=== PATIENT | male | born 1955 | race Caucasian/White ===

== ENCOUNTER 2024-06-28 15:08 | Inpatient (IN) | payer MEDICARE, SELFPAY ==
[2024-06-28] VITALS (37 sets, daily range): BP systolic 81–130; BP diastolic 41–95; PULSE 16–125; RESP 12–28; TEMP 36.4–36.7; O2SAT 90–100; BMI 27.6; BMI 27.0
--- NOTE | 2024-06-28 15:08 | ECG_ITS ---
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 Measurements Intervals [place] Rate: 122 P: 53 VA: 173 QRS: 81 QRSD: 151 T: -53 QT: 365 QTc: 520 Interpretive Statements SINUS TACHYCARDIA WITH OCCASIONAL VENTRICULAR PREMATURE COMPLEXES RIGHT BUNDLE BRANCH BLOCK ST CHANGES, CONSIDER INFERIOR ISCHEMIA . No previous ECG available for comparison Electronically Signed On 06-28-2024 16:39:49 CDT by Austen Hector M.D. [email or web address]
--- NOTE | 2024-06-28 15:09 | XRR_ITS ---
PROCEDURE INFORMATION: Exam: XR Chest Exam date and time: 06/28/2024 3:22 PM Age: 69 years old Clinical indication: Orthopnea (sob when lying down) TECHNIQUE: Imaging protocol: Radiologic exam of the chest. Views: 1 view. COMPARISON: No relevant prior studies available. FINDINGS: Lungs: There are patchy bilateral infiltrates suspicious for multifocal pneumonia. Pleural spaces: There is minimal blunting of the costophrenic angles which could be related to small amount of pleural fluid or pleural thickening. Heart/Mediastinum: The heart is enlarged. There is calcified plaque involving the aorta. Bones/joints: Unremarkable. XR/XR chest 1V portable [id number] IMPRESSION: 1. Cardiomegaly. 2. Patchy bilateral infiltrates suspicious for multifocal pneumonia. 3. Minimal blunting of the costophrenic angles.
[2024-06-28 15:20] LABS: ABG PCO2 34.2 mmHg (35-45); ABG PH Result 7.45 (7.35-7.45); Alveolar-Arterial Oxygen Gradi 4.7 mmHg (5-10); Arterial Blood Gas Hematocrit 20.8 % (42-52); Base Excess ABG -0.2 mmol/L (-2.0-2.0); Blood Gas Allen Test Pos; Blood Gas Operator Identificat WALCI; Blood Gas Sample Site Radial, right; Blood Gas Sample Type Arterial; Carboxyhemoglobin 3.2 %THgb (0.4-20.1); HCO3 ABG 23.7 mmol/L (22-26); HGB O2 Sat 91.1 % (95-100); Ionized Calcium Level - ABG 1.1 mmol/L (1.1-1.4); Methemoglobin 1.5 % (0.4-1.5); Oxygen Device ROOM AIR; Oxygen Saturation ABG 95.6; PO2 ABG 70.2 mmHg (80.0-100.0); PO2 FiO2 Ratio Arterial Blood 334; Potassium Level - ABG 4.5 mmol/L (3.5-5.0); Total Hemoglobin 6.8 g/dL (14-18)
--- NOTE | 2024-06-28 15:20 | ED_ITS ---
HPI - SOB/Dyspnea 2 General: Chief Complaint: Shortness of Breath/Dyspnea Stated Complaint: sob Time Seen by Provider: 06/28/24 15:18 History of Present Illness: HPI Narrative: 69-year-old male presents emergency room with complaint of shortness of breath. Patient states a trouble with continence of bowel and bladder now developed shortness of breath today oxygen saturations are normal. He has a caregiver that is with him describes her [place] roommate she has no legal standing they are not she does not have power of corporate attorney she reports the patient has been hallucinating. 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 Patient himself denies chest pain some mild abdominal discomfort is very hard of hearing continually complains of chest discomfort he is tachycardic on arrival. Associated symptoms: Reports chest congestion and fever(s); Deny abdominal pain or chest pain Related Data Home Medications Medication Instructions Recorded Confirmed No Known Home Medications 08/11/23 08/11/23 Allergies Allergy/AdvReac Type Severity Reaction Status Date / Time No Known Allergies Allergy Unverified 08/11/23 14:59 Review of Systems 2 Const: Reports: fever(s) and fatigue; Denies: chills Card: Denies: chest pain Resp: Reports: dyspnea and chest congestion GI: Denies: abdominal pain : Denies: dysuria, urinary frequency or urinary urgency Musc: Denies: neck pain or back pain Skin/Breast: Denies: rash PFSH ED 2 PFSH: Medical History Does not have primary care provider Surgical History History of ankle surgery Hx of tonsillectomy Social History Smoking and tobacco/nicotine status: current every day tobacco/nicotine user smokeless tobacco Alcohol intake: former Substance/Drug Use: never Adopted: No Caregiver/support person: No Lives independently: Yes Housing: House Marital status: Single Number of children: 0 service: No Physical Exam 2 Const: GENERAL APPEARANCE: cooperative ORIENTATION/CONSCIOUSNESS: Yes awake, Yes oriented to person, Yes oriented to place and Yes oriented to time HENMT: COMMON NORMALS: normocephalic, atraumatic and hearing grossly normal bilaterally HEAD & SCALP: normocephalic and atraumatic Resp: EFFORT & INSPECTION: Yes tachypneic AUSCULTATION: crackles Laterality: bilateral (Lower) and posterior Cardio: COMMON NORMALS: regular rate, regular rhythm and No murmurs present (Cardio) RATE: regular rate and tachycardic RHYTHM: regular rhythm GI: COMMON NORMALS: Soft to palpation and No hepatosplenomegaly present A USCULTATION: Yes normoactive bowel sounds PALPATION: Yes Soft to palpation, No Tenderness to palpation present (GI), No Guarding due to palpation present (GI) and Yes No hepatosplenomegaly present Extremity: COMMON NORMALS: normal to inspection and capillary refill normal GENERAL: Yes edema Neuro: SENSORIUM/ORIENTATION: Yes oriented to person, Yes oriented to place and Yes oriented to time Skin: OTHER: Petechial-like rash on the upper chest around the neck. Procedures Central Line Placement Right SC: Time Out Performed: Yes Patient Placed on Monitor/Pulse Ox: Yes MD Prep: mask, gown and gloves Local Anesthetic: lidocaine 1% Amount of anesthesia used (mL): 5 Ultrasound Used for Placement: Yes Central Line Lumen Inserted: triple Post Procedure: sutured in place, good blood return, all ports aspirated, flushed, capped and sterile dressing applied Post Procedure X-Ray: tip of catheter in good position and no pneumothorax seen Patient Tolerated Procedure: well Complications: none Course 2 Vital Signs: Vital signs: Vital Signs Temperature 97.6 F 06/28/24 15:12 Pulse Rate 123 H 06/28/24 16:39 Respiratory Rate 16 06/28/24 15:12 Blood Pressure 126/81 06/28/24 16:39 Pulse Oximetry 97 06/28/24 15:12 Oxygen Delivery Me thod Room Air 06/28/24 15:12 MDM - SOB/Dyspnea Medical Decision Making Will admit discussed with hospitalist. Patient is anemic also appears to be in heart failure has significant edema of the lower extremities. Patient's was seen anemia is macrocytic. Patient admits to being a former heavy drinker. His platelets are slightly low his MCV is 110. In addition his T. bili is 4.1. He has a mild acute kidney injury with a creatinine of 2.1 and a BUN of 41. He is also mildly hyponatremic at 132 his lactic acid is 3.4 first troponin is 763 with a BNP of 64,000. Significant concern for PE. I did heparinize the patient because of his elevated troponin also placed him on topical nitro. He is not having any chest discomfort at this time. EKG shows Q waves in 2 3 and aVF with some lateral ST depression. Discussed with Dr. Lowery he requested a central line which was placed. Also consulted cardiology. Patient's white count is not elevated lactic acid is elevated patient is in significant congestive heart failure also has pneumonia. He was not given a fluid bolus as this would be significantly detrimental to his condition. He was initiated on IV antibiotics and he will be transfused. At this time giving the patient a sepsis fluid bolus of 30 mL/kg would be harmful and was not done. His pressure is stable and he does not require this at this time. Clinically he likely will require some diuresis rather than increased fluid. Medical Records I reviewed the patient's medical records. Lab Data I reviewed the patient's lab results. 06/28/24 15:26 06/28/24 15:26 Labs/Radiology: Radiology Impressions Chest X-Ray 06/28/24 15:09 IMPRESSION: 1. Cardiomegaly. 2. Patchy bilateral infiltrates suspicious for multifocal pneumonia. 3. Minimal blunting of the costophrenic angles. Laboratory Results WBC 10.38 10^3/uL (3.29-11.43) 06/28/24 15: RBC 2.17 10^6/uL (3.85-5.65) L 06/28/24 15: Hgb 7.00 g/dL (11.27-16.99) L 06/28/24 15: Hct 23.9 % (37-53) L 06/28/24 15: MCV 110.1 fl (82-101) H 06/28/24 15: MCH 32.3 pg (27-33) 06/28/24 15: MCHC 29.3 g/dL (30-55) L 06/28/24 15: RDW 25.3 % (12.1-15.1) H 06/28/24 15: Plt Count 151 10^3/cmm (157-399) L 06/28/24 15: MPV 11.6 fL (7.4-10.4) H 06/28/24 15: Neut % (Auto) 89.5 % 06/28/24 15: Lymph % (Auto) 4.6 % 06/28/24 15: [place] % (Auto) 4.7 % 06/28/24 15: Eos % (Auto) 0.0 % 06/28/24 15: Baso % (Auto) 0.1 % 06/28/24 15: Neut # (Auto) 9.29 10^3/uL (1.8-7.7) H 06/28/24: Lymph # (Auto) 0.5 10^3/uL (0.8-4.8) L 06/28/24: [place] # (Auto) 0.5 10^3/uL (0.2-0.9) 06/28/24: Eos # (Auto) 0.0 10^3/uL (0.0-0.8) 06/28/24 15: Baso # (Auto) 0.0 10^3/uL (0.0-0.1) 06/28/24: Nucleated RBC % (auto) 1.3 % 06/28/24: Nucleated RBCs # 0.1 /100WBC 06/28/24 15: Specimen Type Arterial 06/28/24 15:09 Sample Site Radial, right 06/28/24 15:09 ABG pH 7.45 (7.35-7.45) 06/28/24 15:09 ABG pCO2 34.2 mmHg (35-45) L 06/28/24 15:09 ABG pO2 70.2 mmHg (80.0-100.0) L 06/28/24 15:09 ABG PO2/FiO2 Ratio 334 06/28/24 15:09 ABG HCO3 23.7 mmol/L (22-26) 06/28/24 15:09 ABG O2 Saturation 95.6 06/28/24 15:09 ABG Base Excess -0.2 mmol/L (-2.0-2.0) 06/28/24 15:09 Toney Test Pos 06/28/24 15:09 A-a O2 Gradient 4.7 mmHg (5-10) L 06/28/24 15:09 Hematocrit 20.8 % (42-52) L 06/28/24 15:09 Hgb O2 Saturation 91.1 % (95-100) L 06/28/24 15:09 Carboxyhemoglobin 3.2 %THgb (0.4-20.1) 06/28/24 15:09 Methemoglobin 1.5 % (0.4-1.5) 06/28/24 15:09 Total Hemoglobin 6.8 g/dL (14-18) L 06/28/24 15:09 Sodium 135.0 mmol/L (131-143) 06/28/24 15:09 Potassium 4.5 mmol/L (3.5-5.0) 06/28/24 15:09 Glucose 122.0 mg/dL (70-115) H 06/28/24 15:09 Ionized Calcium 1.1 mmol/L (1.1-1.4) 06/28/24 15:09 O2 Delivery Device Room air 06/28/24 15:09 FiO2 21.0 % 06/28/24 15:09 Branch Logistics Supervisor ID [place] 06/28/24 15:09 Sodium 132 mmol/L (136-145) L 06/28/24 15:26 Potassium 4.6 mmol/L (3.5-5.1) 06/28/24 15:26 Chloride 96 mmol/L (98-107) L 06/28/24 15:26 Carbon Dioxide 23 mmol/L (22-29) 06/28/24 15:26 Anion Gap 17.6 (5-19) 06/28/24 15:26 BUN 49 mg/dL (8-23) H 06/28/24 15:26 Creatinine 2.1 mg/dL (0.7-1.2) H 06/28/24 15:26 GFR Calculation Not Reportable 06/28/24 15:26 Glucose 118 mg/dL (65-115) H 06/28/24 15:26 Calculated Osmolality 288 mOsm/kg (285-295) 06/28/24 15:26 Lactic Acid 3.4 mmol/L (0.5-2.2) H 06/28/24 15:26 Calcium 7.8 mg/dL (8.5-10.5) L 06/28/24 15:26 Magnesium 2.6 mg/dL (1.7-2.3) H 06/28/24 15:26 Total Bilirubin 4.3 mg/dL (0.15-1.2) H 06/28/24 15:26 AST 50 U/L (0-40) H 06/28/24 15:26 ALT 28 U/L (0-41) 06/28/24 15:26 Alkaline Phosphatase 226 U/L (40-130) H 06/28/24 15:26 Creatine Kinase 110 U/L (39-308) 06/28/24 15:26 Troponin T Baseline 763 ng/L (0-15) H* 06/28/24 15:26 NT-Pro-B Natriuret Pep 39138 pg/mL (0-125) H 06/28/24 15:26 Total Protein 6.9 g/dL (6.6-8.7) 06/28/24 15:26 Albumin 3.2 g/dL (3.5-5.2) L 06/28/24 15:26 Globulin 3.7 g/dL (1.3-4.6) 06/28/24 15:26 Lipase 34 U/L (13-60) 06/28/24 15:26 Blood Type O Negative 06/28/24 16:29 Rho(D) Type Rh negative 06/28/24 16:29 Antibody Screen Negative 06/28/24 16:29 All radiology interpretation(s) finalized by discharge Discharge Plan Discharge Patient Disposition: Admitted As Inpatient Admit Provider: Ab Levi Clinical Impression: Elevated troponin, Congestive heart failure, Anemia, Thrombocytopenia, MINGO (acute kidney injury), Hyponatremia, Transaminitis, Pneumonia, Sepsis Condition: Stable Coding Level of Care Code 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
[2024-06-28 15:40] LABS: Basophils % 0.1 %; Hematocrit 23.9 % (37-53); Lymphocytes # 0.5 10^3/uL (0.8-4.8); Lymphocytes % 4.6 %; Mean Corpuscular HGB Conc 29.3 g/dL (30-55); Mean Corpuscular Hemoglobin 32.3 pg (27-33); Mean Corpuscular Volume 110.1 fl (82-101); Mean Platelet Volume 11.6 fL (7.4-10.4); Monocytes # 0.5 10^3/uL (0.2-0.9); Monocytes % 4.7 %; Neutrophils # 9.29 10^3/uL (1.8-7.7); Neutrophils % 89.5 %; Nucleated Red Blood Cells # 0.1 /100WBC; Nucleated Red Blood Cells % 1.3 %; Platelet Count 151 10^3/cmm (157-399); Red Blood Count 2.17 10^6/uL (3.85-5.65); Red Cell Distribution Width 25.3 % (12.1-15.1); White Blood Count 10.38 10^3/uL (3.29-11.43)
[2024-06-28 16:02] LABS: Lactic Sepsis W/Reflex 3.4 mmol/L (0.5-2.2)
[2024-06-28 16:06] LABS: Troponin(5th) Baseline 763 ng/L (0-15)
--- NOTE | 2024-06-28 16:07 | ECG_ITS ---
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 Measurements Intervals [place] Rate: 104 P: 40 PA: 118 QRS: 80 QRSD: 146 T: -82 QT: 364 QTc: 479 Interpretive Statements RIGHT BUNDLE BRANCH BLOCK [ ST DEVIATION AND MODERATE T-WAVE ABNORMALITY, CONSIDER INFERIOR ISCHEMIA [-0.1+ mV T-WAVE IN II/aVF] Compared to ECG 06/28/2024 15:12:13 No significant change Electronically Signed On 06-30-2024 12:06:49 CDT by Austen Hector M.D. [email or web address]
--- NOTE | 2024-06-28 16:13 | USCV_ITS ---
Devyn Schwartz Age: 69 Gender: M : 1955 Exam Date: 06/28/2024 20:17 Ordering Phys: Darin Lopez DO Technologist: GARCIA [place] [facility] [place]: elevated troponin, SOB, long-term smoker continues smoking. BP: 130 / 95 HR: 109 Rhythm: Atrial fibrillation Technical Quality: Adequate MEASUREMENTS (Male / Female) Normal Values 2D ECHO LV Diastolic Diameter PLAX 6.6 cm 4.2 - 5.9 / 3.9 - 5.3 cm IVS Diastolic Thickness 1.1 cm 0.6 - 1.0 / 0.6 - 0.9 cm IVS Systolic Thickness 1.5 cm LVPW Diastolic Thickness 1.2 cm 0.6 - 1.0 / 0.6 - 0.9 cm LVPW Systolic Thickness 1.2 cm LVOT Diameter 2.5 cm LV Ejection Fraction 2D Teich 14.1 % LV Ejection Fraction MOD 4C 29.4 % LV Ejection Fraction MOD 2C 8.7 % LV Ejection Fraction 2C AL 7.8 % LA Diameter 5.1 cm Aorta at Sinotubular Diameter 2.3 cm IVC Diameter 2.9 cm M-MODE LA Ao Ratio MM 1.3 AV Cusp Separation MM 1.3 cm DOPPLER AV Peak Velocity 139.0 cm/s LVOT Peak Velocity 71.0 cm/s AV Area Cont Eq vti 2.8 cm squared AV Area Cont Eq pk 2.5 cm squared MV Peak Velocity 137.0 cm/s MV Area PHT 4.4 cm squared Mitral E to A Ratio 0.0 TV Peak Velocity 290.0 cm/s TR Peak Velocity 294.0 cm/s TR Peak Gradient 34.6 mmHg TV Peak E Velocity 33.0 cm/s Right Atrial Pressure 10.0 mmHg Pulmonary Artery Systolic Pressu 44.6 mmHg PV Peak Velocity 82.0 cm/s FINDINGS Left Ventricle Dilated left ventricle with severely reduced LV systolic function. Estimated LVEF is 20-25%. There is global hypokinesis with more severe hypokinesis of anteroseptal, anterolateral and apical wall segment. Right Ventricle Mildly increased right ventricular size with fair RV systolic function. Right Atrium Moderately increased right atrial size. Left Atrium Dilated left atrium. Mitral Valve Mildly thickened mitral leaflets with moderately severe mitral regurgitation. Aortic Valve Mildly thickened aortic valve. No aortic valve stenosis. Trace aortic valve regurgitation. Tricuspid Valve Mildly thickened tricuspid valve. Moderate tricuspid regurgitation. Pulmonic Valve Structurally normal pulmonic valve. Trace pulmonary valve regurgitation. Pericardium No pericardial effusion. Aorta Normal size aortic root and proximal ascending aorta. IVC Dilated IVC with decreased respiratory variation. CONCLUSIONS Severely reduced LV systolic function. Estimated LVEF is 20 to 25%. Global hypokinesis with severe hypokinesis of anteroseptal, anterolateral and apical wall segments. Dilated left and right atrium. Moderately severe mitral regurgitation. Moderate tricuspid regurgitation. Elevated RV and pulmonary pressures (45-50 mmHg). Austen Hector MD (Electronically Signed) Final Date: 29 June 2024 08:53 S
--- NOTE | 2024-06-28 16:13 | CTR_ITS ---
PROCEDURE INFORMATION: Exam: CT Head Without Contrast Exam date and time: 06/28/2024 6:30 PM Age: 69 years old Clinical indication: Altered mental status/memory loss; Additional info: Altered mental status hallucinations TECHNIQUE: Imaging protocol: Computed tomography of the head without contrast. Radiation optimization: All CT scans at this facility use at least one of these dose optimization techniques: automated exposure control; mA and/or kV adjustment per patient size (includes targeted exams where dose is matched to clinical indication); or iterative reconstruction. COMPARISON: No relevant prior studies available. RADIATION DOSE METRICS: Total DLP (mGy-cm): 936.78 FINDINGS: Brain: Moderate nonspecific white matter low attenuation which may be related to microvascular ischemic changes. No acute confluent lobar ischemic infarct. No acute intracranial hemorrhage. Cerebral ventricles: The ventricles and sulci are prominent in size compatible with moderate atrophy. Paranasal sinuses: No fluid levels. Mastoid air cells: Visualized mastoid air cells are well aerated. Bones: No acute calvarial fracture. Soft tissues: Visualized soft tissues are unremarkable. CT/CT head wo con* [id number] IMPRESSION: No acute intracranial abnormality. If symptoms persist, consider further evaluation with MRI, if MRI is clinically safe to obtain.
[2024-06-28] MEDS: aspirin 81 mg Chew Tablet 324 MG PO (16:14)
[2024-06-28] MEDS: pantoprazole 40 mg SDV 80 MG IVP (16:16)
[2024-06-28 16:18] LABS: Alanine Aminotransferase 28 U/L (0-41); Albumin Level 3.2 g/dL (3.5-5.2); Alkaline Phosphatase 226 U/L (40-130); Anion Gap 17.6 (5-19); Aspartate Amino Transferase 50 U/L (0-40); Blood Urea Nitrogen 49 mg/dL (8-23); Calcium 7.8 mg/dL (8.5-10.5); Carbon Dioxide 23 mmol/L (22-29); Chloride 96 mmol/L (98-107); Creatine Phosphokinase 110 U/L (39-308); Creatinine Clr Calc Pharmacy 35.9682; Globulin 3.7 g/dL (1.3-4.6); Glucose 118 mg/dL (65-115); Lipase 34 U/L (13-60); Magnesium 2.6 mg/dL (1.7-2.3); Osmolality Calculated 288 mOsm/kg (285-295); Potassium 4.6 mmol/L (3.5-5.1); Sodium 132 mmol/L (136-145); Total Bilirubin 4.3 mg/dL (0.15-1.2); Total Protein 6.9 g/dL (6.6-8.7)
[2024-06-28] MEDS: piperacillin-tazobactam 3.375 GM in sodium chloride 0.9% (plus) 50 ML IV (16:37)
[2024-06-28 16:38] LABS: NT Pro B Type Natriuretic Pept 63944 pg/mL (0-125)
[2024-06-28] MEDS: nitroglycerin 1 gm/inch oint Pkt 0.5 INCH TOPICAL (16:39)
[2024-06-28 17:22] LABS: Reflex Lactate Order REFLEX LACTIC ORDERD
[2024-06-28] MEDS: heparin 5,000 unit/mL INJ 1 mL IVP (17:24)
[2024-06-28] MEDS: heparin drip 25,000 UNIT/500 ML PREMIX 25 UNIT IV (17:26)
--- NOTE | 2024-06-28 17:45 | CTR_ITS ---
PROCEDURE INFORMATION: Exam: CT Chest Without Contrast; Diagnostic Exam date and time: 06/28/2024 6:33 PM Age: 69 years old Clinical indication: Other: Sepsis; Shortness of breath; Additional info: Chf, sepsis, pna, right abd pain TECHNIQUE: Imaging protocol: Diagnostic computed tomography of the chest without contrast. Radiation optimization: All CT scans at this facility use at least one of these dose optimization techniques: automated exposure control; mA and/or kV adjustment per patient size (includes targeted exams where dose is matched to clinical indication); or iterative reconstruction. COMPARISON: CR (CHEST, ) 06/28/2024 6:09 PM RADIATION DOSE METRICS: Total DLP (mGy-cm): 1451.2 FINDINGS: Limitations: Breathing artifact. Pulmonary parenchyma is suboptimally evaluated. Lungs: Extensive subpleural reticular opacities likely representing areas of subpleural fibrotic change. Focal area of ground-glass in the left anterolateral upper lobe could represent focal consolidation. Calcified granulomata are noted in the right lung. Evaluation for small nodules limited due to breathing artifact combined with 5 mm cuts. Scattered subpleural nodules measuring up to 8 mm are likely inflammatory/postinflammatory. Scattered areas of paraseptal emphysema. Pleural spaces: Small right pleural effusion. Moderate left pleural effusion. No pneumothorax. Heart: Mild cardiomegaly. No pericardial effusion or pericardial thickening. Coronary arteries: Severe coronary artery calcification. Lymph nodes: No enlarged lymph nodes are identified. Calcified subcarinal lymph node. Vasculature: Atherosclerotic calcifications of the aorta are present. No aneurysm is identified. Bones/joints: Breathing artifact limits evaluation for acute rib fracture. No acute osseous abnormalities are seen. Soft tissues: Increased soft tissue density in the subcutaneous tissues of the right supraclavicular region consistent with hematoma from line placement. COMMENTS: 1. For patients at low risk (minimal or absent history of smoking and of other known risk factors), recommend CT Chest at 3-6 months, then consider CT Chest at 18-24 months. For patients at high risk (history of smoking or of other known risk factors), recommend CT Chest at 3-6 months, then CT Chest at 18-24 months. (Reference: Erma) 2. The presence of pulmonary emphysema on CT is an independent risk factor for lung cancer. In the absence of a history or active diagnosis of lung cancer, it is recommended that this patient with emphysema be evaluated for enrollment in a low dose CT lung cancer screening program. REFERENCES: Erma Garner et al. Guidelines for Management of Incidental Pulmonary Nodules Detected on CT Images: From the Fleischner Society 2017. Radiology. 2017;284(1):228-243. PROCEDURE INFORMATION: Exam: CT Abdomen And Pelvis Without Contrast Exam date and time: 06/28/2024 6:33 PM Age: 69 years old Clinical indication: Other: Sepsis; Shortness of breath; Additional info: Chf, sepsis, pna, right abd pain TECHNIQUE: Imaging protocol: Computed tomography of the abdomen and pelvis without contrast. Radiation optimization: All CT scans at this facility use at least one of these dose optimization techniques: automated exposure control; mA and/or kV adjustment per patient size (includes targeted exams where dose is matched to clinical indication); or iterative reconstruction. COMPARISON: CR (CHEST, ) 06/28/2024 6:09 PM RADIATION DOSE METRICS: Total DLP (mGy-cm): 1451.2 FINDINGS: Limitations: Breathing artifact limits evaluation of the upper abdomen. Liver: Suggested nodularity of the liver surface. The liver is otherwise normal. No masses identified on noncontrast imaging. Gallbladder and biliary ducts: Mildly hyperdense gallbladder. No definitive stones identified though evaluation is limited due to motion. No ductal dilatation. Pancreas: The pancreas is atrophic without obvious abnormality. Spleen: Calcified splenic granulomata are noted. The spleen is otherwise normal. Adrenal glands: The adrenal glands are normal. Kidneys and ureters: No renal calcifications are identified. There is no hydronephrosis. Stomach and bowel: Moderate colonic diverticulosis without diverticulitis. No large or small bowel obstruction. No obvious bowel wall thickening. Appendix: Normal appendix projecting into the right inguinal hernia. Intraperitoneal space: Nkfw-mw-niupnxza ascites. Tiwq-zb-uwbazmsk central mesenteric edema. No pneumoperitoneum or suggested fluid collection. Vasculature: Bilateral distal common femoral aneurysms measuring up to 3.1 cm on the right and 2.9 cm on the left. Atherosclerotic calcifications of the aorta are present. No aneurysm is identified. Severe calcifications of the origin of the superior mesenteric artery which may be severely stenotic. Evaluation limited by lack of intravenous contrast. Lymph nodes: No enlarged lymph nodes are identified. No enlarged lymph nodes are identified. Urinary bladder: The bladder is unremarkable. Reproductive: There is mild prostatomegaly. Bones/joints: No acute osseous abnormalities are seen. Soft tissues: Normal appendix is identified enlarged right lower quadrant inguinal hernia. Moderate diffuse subcutaneous edema consistent with anasarca. Large right inguinal hernia containing a small amount of fat and a moderate amount of fluid. There is a small left inguinal hernia containing only fat. CT/[place] [id number] IMPRESSION: 1. Small right and moderate left pleural effusions with adjacent atelectasis. 2. Mild area of ground-glass opacification in the anterior left upper lobe is nonspecific and may represent focal consolidation. 3. Scattered subpleural nodules measuring up to 8 mm likely inflammatory/postinflammatory. See comments for Fleischner recommendations. 4. Mild diffuse subcutaneous edema. 5. Other nonemergent findings above. IMPRESSION: 1. Nodular liver surface may indicate chronic liver disease such as cirrhosis. 2. Vinb-wj-xwamjsdt ascites , central mesenteric edema, and anasarca. Correlate with fluid status. 3. Hyperdensities within the gallbladder which is not well assessed due to motion artifact. Consider right upper quadrant ultrasound if gallbladder pathology is suspected. 4. Other findings above.
--- NOTE | 2024-06-28 18:05 | P.HP_ITS ---
Providers/Chief Complaint 2 Admitting Physician: Ab Levi MD Primary Care Provider: Marlon Burris DO Chief Complaint: sob History of Present Illness Devyn Schwartz is a 69 year old male with no significant past medical history, not seen a physician in over 2025 years as he believes in natural healing was brought into the ER today with his life partner complaining of ongoing shortness of breath getting worse over last few weeks associated with lower limb swelling which has been getting worse and going up to his waist level. Patient denies any nausea, vomiting. On examination patient was seen gasping for air room air saturating 98%, awake and alert with heart rate of 110 bpm, blood pressure of 120 systolics.. He denies any fever, sick contact, dysuria, diarrhea, hematemesis, melena with last bowel movement earlier today morning which was well-formed and brown in color, denies any abdominal pain but does complain of decreased appetite over last 1 or 2 weeks Review of Systems 2 General: Reports: 10 or more systems reviewed and unremarkable except in HPI and below Const: Denies: fever(s), chills, body aches, change in appetite, change in weight, malaise, night sweats, diaphoresis, change in sleep pattern, daytime sleepiness or snoring Eyes: Denies: change in vision, blurry vision, photophobia, eye discomfort or eye discharge ENMT: Denies: throat pain, enlarged tonsils, hoarseness, mouth pain, oral sores, dry mouth, tinnitus, nasal congestion or post nasal drip Card: Denies: chest pain, palpitations, irregular heart rhythm, edema, swelling of feet/ankles, lightheadedness, syncope, pre-syncope, dyspnea on exertion, orthopnea, leg pain with exertion or acrocyanosis Resp: Denies: dyspnea, productive cough, non-productive cough, wheezing, stridor, pain on inspiration, change in phlegm color, hemoptysis or chest congestion GI: Denies: abdominal pain, nausea, vomiting, hematemesis, coffee ground emesis, dysphagia, heartburn, diarrhea, constipation, bloating, GI cramping, change in bowel habits, pain on defecation, hematochezia or melena : Denies: flank pain, difficulty urinating, dysuria, urinary frequency, urinary urgency, urinary hesitancy, urinary dribbling, difficulty starting urination, change in urine stream, nocturia or hematuria Musc: Denies: neck pain, back pain, extremity pain, joint pain, joint swelling, joint redness, joint stiffness or limited range of motion Neuro: Denies: headache(s), numbness in extremities, weakness in extremities, sensory changes, lack of coordination, difficulty walking, frequent falls, dizziness, vertigo, confusion, Slurred speech present, difficulty communicating thoughts or seizure-like activity Psych: Denies: anxiety, depression, mood swings, panic attacks, hopelessness or irritability Endo: Denies: polyuria, polydipsia, tired all the time, cold intolerance, excessive sweating, flushing or heat intolerance Shorty/Lymph: Denies: easy bruising or easy bleeding All/Imm: Denies: tongue swelling, facial swelling or acute wheezing Medications/Allergies Home Medications Medication Instructions Recorded Confirmed Last Taken Type No Known Home Medications 08/11/23 06/29/24 Unknown History Allergies Allergy/AdvReac Type Severity Reaction Status Date / Time No Known Allergies Allergy Unverified 08/11/23 14:59 PFSH Acute 2 PFSH: Medical History Does not have primary care provider Surgical History History of ankle surgery Hx of tonsillectomy Social History Smoking and tobacco/nicotine status: current every day tobacco/nicotine user smokeless tobacco Alcohol intake: former Substance/Drug Use: never Adopted: No Caregiver/support person: No Lives independently: Yes Housing: House Marital status: Single Number of children: 0 service: No Vitals/I&O/Wt Last Vital Signs Temp 97.6 F 06/28/24 15:12 Pulse 123 H 06/28/24 16:39 Resp 16 06/28/24 15:12 BP 126/81 06/28/24 16:39 Pulse Ox 97 06/28/24 15:12 O2 Del Method Room Air 06/28/24 15:12 Weight last 48 hrs Weight 87.543 kg Physical Exam 2 Narrative: General: In mild distress or difficulty in breathing, AO x 3, intercostal retractions present, sitting with head of the bed elevated at 50 degrees, finding it difficult to breathe HEENT: PERRLA, pupils bilaterally equal and reactive Chest: Bilateral bronchial breath sounds all over lung barrera with decreased air entry in lower zone, fine crackles up to mid lungs CVS: S1-S2 regular, tachycardia present, soft pansystolic murmur at apex, S3 gallops, no rubs Abdomen: Soft, nontender, no organomegaly, bowel sounds present Neuro: No focal deficits, no facial deformity, AO x3, power 5/5 in all limbs Data 06/29/24 08:48 06/29/24 08:48 Micro: Microbiology 06/28/24 15:45 Blood Culture - Preliminary Blood SPECIMEN COLLECTED 06/28/24 15:26 Blood Culture - Preliminary Blood SPECIMEN COLLECTED A&P Assessment and plan (1) Hypoxic respiratory failure: (2) MINGO (acute kidney injury): (3) Congestive heart failure: (4) Cardiogenic shock: (5) Elevated troponin: (6) Anemia: (7) Hyponatremia: (8) Thrombocytopenia: (9) Transaminitis: Plan 69-year-old gentleman with no medical care in many years presented to the ER today with difficulty in breathing worsening over the last 6 to 7 weeks found to be in respiratory failure with tachycardia in the ER. Hypoxic respiratory failure: High likelihood of pulmonary embolism versus congestive heart failure. Troponin, proBNP elevated. Check D-dimer, ABG to look for hypercapnia and hypoxia. Unfortunately CTA cannot be done as patient has acute kidney injury with creatinine of 2.1. Discussed detail with need for anticoagulation which could be tricky because of ongoing anemia of unknown cause which could be because of bleeding versus anemia of chronic disease. Patient though denies any active bleeding currently. He is agreeable to hold off on contrast study for kidney protection and start on anticoagulation while monitoring his hemoglobin. Start on heparin drip. Oxygen supplementation keeping saturation over 90%. Will start on nasal cannula for decreasing work of breathing. If needed we will switch over to high flow nasal cannula. Ipratropium, Xopenex every 6 hour, Pulmicort twice daily. CT chest without contrast for further evaluation. Check echocardiogram. IV Lasix 100 mg one-time. Griggs catheterization. Strict input output charting, daily weights. Fluid restriction up to 1500 cc. MINGO versus CKD: Do not have baseline creatinine. Medical decompression done for nephrotoxic drugs. CT abdomen pelvis to rule out obstructive nephropathy. Urinalysis, urine lites, urine creatinine, urine eosinophils. Monitor BMP daily for now. Griggs catheterization. MINGO associated with hyponatremia for now. Hyponatremia could be in setting of congestive heart failure. Monitor daily. Elevated troponin: Could be non-ST elevation AL versus type II in setting of significant PE. Cycle troponin. Check echocardiogram. Cardiology consulted. Heparin drip. Aspirin 325 mg one-time followed by 81 mg daily. Check lipid panel, A1c. Anemia: Not sure of ongoing bleeding. Patient denies any melena. Check stool for occult blood. Target hemoglobin more than 8. Transfused 2 unit of PRBC. Check iron panel, vitamin B12, folate levels. Check DIC profile. Protonix 40 mg twice daily, Carafate before meals and at bedtime. Transaminitis: Could be in setting of congestive heart failure due to congestive hepatomegaly. As patient does not have any history of following with PCP. For now we will check hepatitis panel, HIV, urine drug screen, alcohol level, Tylenol level, salicylate level. Monitor daily. Hold off on statin for now. Poor IV access. Will request for central line to be placed in the ER. Goals of care discussion: Discussed needed with the patient and caregiver at bedside. We discussed that unfortunately patient is significantly sick with symptoms concerning for congestive heart failure versus pulmonary embolism with concerns for multiorgan dysfunction. Discussed that there is a high chance patient would not survive anything if he does he would need to be on medications for life and most likely if this is going to be a prolonged hospitalization. Patient verbalized understanding and wants to go ahead with treatment. CODE STATUS: Discussed in detail with patient at bedside. Friend Moon Saleem will be the DPOA. Patient does not want any kind of aggressive measures in case of cardiac arrest. DNR/DNI Protonix twice daily for suppression of PUD prophylaxis Heparin drip will be sufficient for DVT prophylaxis. Severely guarded prognosis in setting of multiorgan dysfunction with MINGO, significantly elevated troponin with concerns for respiratory failure in setting of congestive heart failure versus pulmonary embolism requiring anticoagulation in a patient with setting of severe anemia requiring blood transfusion. Admit to ICU. Attestations 2 Medical Necessity Statement*: Requires admission for more than 2 midnights for management of hypoxic respiratory failure in setting of congestive heart failure, possible pulmonary embolism, elevated troponin with concerns for non-ST patient AL, MINGO, significant anemia requiring blood transfusion, transaminitis, early cardiogenic shock. Critical Care Time: The high probability of a clinically significant, sudden or life threatening deterioration of the patient's [cardiac, pulmonary, renal, GI, hematological] s ystem(s) required my full and direct attention, intervention and personal management. The critical care time is as shown. This time is in addition to time spent performing any reported procedures but includes the following: [x] Data and vital sign review and interpretation [x] Patient assessment, examination and intervention [x] Documentation [x] Medication orders and management Critical Care Time (min): 80 Coding Level of Care Code Critical Care >/= 30 minutes Critical care time (in minutes): 80 The high probability of a clinically significant, sudden or life threatening deterioration, as referenced in this documentation, required my full and direct attention, intervention and personal management. The critical care time shown is in addition to time spent performing any reported separately billable procedures and includes the following: [x] Data and vital sign review and interpretation [x ] Patient assessment, examination and intervention [x] Medication orders and management [x] Patient/Family updates as able [x] Care Coordination and Documentation. Diagnoses Hypoxic respiratory failure J96.91 MINGO (acute kidney injury) N17.9 Congestive heart failure I50.9 Cardiogenic shock R57.0 Elevated troponin R79.89 Anemia D64.9 Hyponatremia E87.1 Thrombocytopenia D69.6 Transaminitis R74.01
--- NOTE | 2024-06-28 18:08 | XRR_ITS ---
PROCEDURE INFORMATION: Exam: XR Chest Exam date and time: 06/28/2024 6:09 PM Age: 69 years old Clinical indication: Other vascular access device placement or adjustment; Central line, tunnelled; Additional info: F/u cxr TECHNIQUE: Imaging protocol: Radiologic exam of the chest. Views: 1 view. COMPARISON: CR XR chest 1V portable [id number] 06/28/2024 3:22 PM FINDINGS: Tubes, catheters and devices: New right internal jugular venous catheter terminating in the region of the cavoatrial junction. Lungs: Patchy bilateral interstitial and airspace opacities are stable in distribution and extent. Pleural spaces: Persistent minimal blunting of the bilateral costophrenic angles. No visualized pneumothorax. Heart/Mediastinum: Stable cardiomegaly. Bones/joints: No acute osseous abnormalities are seen. XR/XR chest 1V portable [id number] IMPRESSION: 1. New right internal jugular venous catheter terminating in the region of the cavoatrial junction. 2. Otherwise stable radiographic appearance of the chest.
[2024-06-28 18:45] LABS: Anion Gap 15.4 (5-19); Blood Urea Nitrogen 50 mg/dL (8-23); Calcium 7.8 mg/dL (8.5-10.5); Carbon Dioxide 24 mmol/L (22-29); Chloride 96 mmol/L (98-107); Creatinine Clr Calc Pharmacy 34.3333; Glucose 117 mg/dL (65-115); Lactic Acid level (Lactate) 2.1 mmol/L (0.5-2.2); Osmolality Calculated 286 mOsm/kg (285-295); Potassium 4.4 mmol/L (3.5-5.1); Sodium 131 mmol/L (136-145)
[2024-06-28 18:45] LABS: D Dimer 9.09 ug/mLFEU (0-0.59)
[2024-06-28 18:49] LABS: Troponin 5 2HR 703.2 ng/L (0-15); Troponin 5 2HR Delta -59.8 ABS# (0-10)
[2024-06-28] MEDS: linezolid premix 600 MG/300 ML PREMIX 300 MG IV (19:00)
[2024-06-28 19:05] LABS: Covid PCR NEGATIVE (Negative); Influenza A NEGATIVE (Negative); Influenza B NEGATIVE (Negative); Respiratory Syncytial Virus Ce NEGATIVE (Negative)
--- NOTE | 2024-06-28 19:10 | PC.NURSE ---
Arrival to ICU 12: Pt arrived to ICU 12 @1909 via stretcher from ER. Continuos cardiac monitoring continued. Open ulcer noted on L. Lower leg, see Wound Assessment . Pt is A&Ox4, reporting 8/[address] Levi called to notify of arrival, new order to give 60mg IVP lasix ONCE @0400 if UO is less than 500.
[2024-06-28 19:19] LABS: Procalcitonin 0.74 ng/mL (0-0.5); Thyroid Stimulating Hormone 4.04 uIU/mL (0.27-4.20)
[2024-06-28 19:30] LABS: Iron 85 ug/dL (59-158); Salicylate 0.4 mg/dL (3-10); Total Iron Binding Capacity 250 mcg/dl; Unsaturated Iron Binding 165 ug/dL (112-347)
[2024-06-28 19:32] LABS: Acetaminophen < 5.0 ug/mL (10-30); Alcohol Level < 10 mg/dL (0-10)
[2024-06-28 19:37] LABS: HIV 1 & 2 Antibody Non-Reactive (Non-Reactiv); HIV 1 & 2 Antigen Non-Reactive (Non-Reactiv)
[2024-06-28] MEDS: FUROsemide 10 mg/mL SDV 10mL 100 MG IVP (19:45)
[2024-06-28] MEDS: pantoprazole 40 mg SDV IVP (19:48)
[2024-06-28 19:51] LABS: Vitamin B12 > 2000 pg/mL (232-1245)
[2024-06-28 19:51] LABS: Glucose Urine UA Not Tested (Normal); Ketones Urine Not Tested (Negative); Protein Urine Not Tested (Negative); Urine Appearance Slightly Cloudy (CLEAR); Urine Color Orange (Yellow)
[2024-06-28 19:52] LABS: Add Urine Microscopic? YES; Bilirubin Urine Not Tested (Negative); Blood Urine Not Tested (Negative); Leukocyte Esterase Urine Not Tested (Negative); Nitrate Urine Not Tested (Negative); UA Manual Slide Review YES; UA Slide Review UA Slide Review Perf; Urobilinogen Urine Not Tested mg/dL (Negative)
[2024-06-28] MEDS: methylPREDNISolone sod succ 40 mg/mL INJ IVP (19:52)
[2024-06-28] MEDS: morphine 4 mg/mL SDV 1 mL 2 MG IVP (19:54)
[2024-06-28] MEDS: sucralfate 1 gm/10 mL Oral Liq UDC PO (20:05)
[2024-06-28] MEDS: budesonide 0.5 mg/2 mL Neb INHALATION (20:07)
[2024-06-28] MEDS: ipratropium 0.5 mg/2.5 mL Neb INHALATION (20:08)
[2024-06-28] MEDS: levalbuterol 0.63 mg/3 mL Neb INHALATION (20:08)
[2024-06-28 20:11] LABS: Amorphous Sediment Urine TRACE /hpf; Bacteria Urine 2+ /hpf; Hyaline Casts Urine 15-25 /lpf; Mucus Urine TRACE /hpf; RBC Urine 0-4 /hpf (0-2); Squamous Epithelial Cell Urine 15-25 /hpf (0-5); Transitional Epi Cells Urine 0-4 /hpf; WBC Urine 0-4 /hpf (0-5)
[2024-06-28 20:12] LABS: Add Urine Culture? No
[2024-06-28 20:40] LABS: INR 2.23 (0.8-1.2)
[2024-06-28 20:41] LABS: Fibrinogen 166 mg/dL (174-498)
[2024-06-28 20:52] LABS: D Dimer 8.52 ug/mLFEU (0-0.59)
[2024-06-28 21:06] LABS: Potassium, Radom Urine 76 mmol/L; Urine Creatinine 170 mg/dL (39-259)
[2024-06-28 21:14] LABS: Urine Random Chloride < 10 mmol/L; Urine Random Sodium < 10 mmol/L
[2024-06-28 21:24] LABS: Eosinophil Urine No Eosinophils Seen; Urine Eosinophil Count 0 (0-0)
--- NOTE | 2024-06-28 21:24 | ECG_ITS ---
[facility]: 2024-06[facility]28 Pat Name: Devyn Schwartz Department: Room: ICU12 Gender: Male Digital Retoucher: : 1955 Requested By: Darin Garvin Order Number: [id number] Srinivasa MD: Austen Hector M.D. Measurements Intervals [place] Rate: 121 P: 53 AK: 235 QRS: 83 QRSD: 150 T: -14 QT: 360 QTc: 512 Interpretive Statements SINUS TACHYCARDIA WITH FIRST DEGREE AV BLOCK WITH OCCASIONAL VENTRICULAR PREMATURE COMPLEXES RIGHT BUNDLE BRANCH BLOCK MODERATE T-WAVE ABNORMALITY, CONSIDER LATERAL ISCHEMIA Compared to ECG 06/28/2024 16:07:44 Ventricular premature complex(es) now present First degree AV block now present T-wave abnormality still present Possible ischemia still present Electronically Signed On 06-29-2024 18:08:26 CDT by Austen Hector M.D. [id number]
[2024-06-28 21:33] LABS: Reflex FDPQ test REFLEX FDP QUEST TES
[2024-06-28 21:42] LABS: Amphetamines Screen Urine Negative (Negative); Barbiturates Screen Urine Negative (Negative); Benzodiazepines Screen Urine Negative (Negative); Cocaine Screen Urine Negative (Negative); Opiate Screen Urine Negative (Negative); PCP Screen Urine Negative (Negative); THC Screen Urine Positive (Negative)
[2024-06-28] MEDS: metoprolol succinate ER (24 HR) 25 mg Tablet PO (21:51)
[2024-06-28] MEDS: acetaminophen 325 mg Tablet 650 MG PO (21:52)
[2024-06-28] MEDS: sodium chloride 0.9% 100 mL Bag 50 ML IV (22:05)
[2024-06-28 23:03] LABS: MRSA PCR OZH (swab) NOT DETECTED (Negative)
[2024-06-28 23:53] LABS: Hepatitis A Antibody IgM Non-Reactive (Nonreactive); Hepatitis B Surface AB 16.1 (11.5-1000)
[2024-06-29] VITALS (113 sets, daily range): BP systolic 67–126; BP diastolic 34–76; PULSE 64–99; RESP 3–48; TEMP 35.7–36.6; O2SAT 91–100
[2024-06-29] MEDS: piperacillin-tazobactam 3.375 GM in sodium chloride 0.9% (plus) 50 ML IV ×3 (00:14→15:58)
[2024-06-29] MEDS: methylPREDNISolone sod succ 40 mg/mL INJ IVP ×4 (00:21→17:19)
[2024-06-29 00:23] LABS: Hepatitis B Core AB, Total Non-Reactive (Nonreactive)
[2024-06-29 00:28] LABS: Hepatitis B Surface Antigen Non-Reactive (Nonreactive); Hepatitis C Virus Antibody Non-Reactive (Nonreactive)
--- NOTE | 2024-06-29 00:28 | PC.NURSE ---
Addendum entered by Charu Almeida RN 06/29/24 02:13: Dr. Way called @115 to notify of persistent low BP, new order for Levophed titratable drip. See MAR for start time. Original Note: Low BP: Dr. Way at bedside @0029 to notify of change in vital signs. BP 79/48, HR 70 bigeminy, RR 12, SpO2 98%. New order to add BMP/CBC to midnight labs and start 2nd unit of blood.
[2024-06-29 01:07] LABS: Basophils % 0.1 %; Hematocrit 21.6 % (37-53); Lymphocytes # 0.3 10^3/uL (0.8-4.8); Lymphocytes % 3.6 %; Mean Corpuscular HGB Conc 30.1 g/dL (30-55); Mean Corpuscular Hemoglobin 32.2 pg (27-33); Mean Corpuscular Volume 106.9 fl (82-101); Mean Platelet Volume 12.2 fL (7.4-10.4); Monocytes # 0.2 10^3/uL (0.2-0.9); Monocytes % 2.7 %; Neutrophils # 7.13 10^3/uL (1.8-7.7); Neutrophils % 92.1 %; Nucleated Red Blood Cells # 0.1 /100WBC; Platelet Count 94 10^3/cmm (157-399); Red Blood Count 2.02 10^6/uL (3.85-5.65); Red Cell Distribution Width 23.6 % (12.1-15.1); White Blood Count 7.75 10^3/uL (3.29-11.43)
[2024-06-29] MEDS: norepinephrine 4 MG/250 ML BAG 30 MG IV ×2 (01:19→18:15)
[2024-06-29 01:22] LABS: Partial Thromboplastin Time 45.1 SECONDS (23.9-36.7)
--- NOTE | 2024-06-29 01:25 | ECG_ITS ---
[facility] Test Date: 2024-06-29 Pat Name: Devyn Schwartz Department: Room: ICU12 Gender: Male Mails Supervisor: : 1955 Requested By: Amanuel Garvin Order Number: [id number] Srinivasa MD: Austen Hector M.D. Measurements Intervals [place] Rate: 76 P: 73 CT: 114 QRS: 81 QRSD: 143 T: 225 QT: 425 QTc: 479 Interpretive Statements SINUS RHYTHM WITH SHORT CT INTERVAL WITH FREQUENT VENTRICULAR PREMATURE COMPLEXES IN A BIGEMINAL PATTERN RIGHT BUNDLE BRANCH BLOCK ST DEVIATION AND MODERATE T-WAVE ABNORMALITY, CONSIDER LATERAL ISCHEMIA ST DEVIATION AND MODERATE T-WAVE ABNORMALITY, CONSIDER INFERIOR ISCHEMIA Compared to ECG 06/28/2024 21:24:09 T-wave abnormality still present Possible ischemia still present Electronically Signed On 06-29-2024 18:01:57 CDT by Austen Hector M.D. [id number]
[2024-06-29 01:28] LABS: Anion Gap 14.3 (5-19); Blood Urea Nitrogen 53 mg/dL (8-23); Calcium 7.4 mg/dL (8.5-10.5); Carbon Dioxide 24 mmol/L (22-29); Chloride 99 mmol/L (98-107); Creatinine Clr Calc Pharmacy 36.6476; Glucose 127 mg/dL (65-115); Lactic Sepsis W/Reflex 1.7 mmol/L (0.5-2.2); Osmolality Calculated 292 mOsm/kg (285-295); Potassium 4.3 mmol/L (3.5-5.1); Sodium 133 mmol/L (136-145)
[2024-06-29 01:29] LABS: Troponin 5 6HR Delta -127.3 ng/L (0-12)
[2024-06-29 01:31] LABS: Troponin 5 6HR 635.7 ng/L (0-15)
[2024-06-29 01:46] LABS: Iron 110 ug/dL (59-158); Percent Saturation 49.1 % (20-50); Phosphorus 4.5 mg/dL (2.5-4.5); Total Iron Binding Capacity 224 mcg/dl; Unsaturated Iron Binding 114 ug/dL (112-347)
--- NOTE | 2024-06-29 01:57 | PC.NURSE ---
Ptt: Notified Dr. Way of ptt 45.1. New order to restart Heparin drip @850units/hr. See MAR .
[2024-06-29 02:03] LABS: Vitamin B12 1847 pg/mL (232-1245)
[2024-06-29] MEDS: levalbuterol 0.63 mg/3 mL Neb INHALATION ×4 (02:48→19:46)
[2024-06-29] MEDS: ipratropium 0.5 mg/2.5 mL Neb INHALATION ×4 (02:48→19:46)
[2024-06-29] MEDS: morphine 4 mg/mL SDV 1 mL 2 MG IVP ×2 (02:54→21:49)
[2024-06-29] MEDS: sodium chloride 0.9% 100 mL Bag 50 ML IV (02:57)
[2024-06-29] MEDS: FUROsemide 10 mg/mL SDV 10mL 60 MG IVP ×2 (04:08→09:42)
[2024-06-29] MEDS: pantoprazole 40 mg SDV IVP ×2 (05:31→17:20)
[2024-06-29] MEDS: dexmedeTOMIDine 0.9 % NaCL 400 MCG/100 ML PREMIX IV (06:21)
[2024-06-29] MEDS: linezolid premix 600 MG/300 ML PREMIX 300 MG IV ×2 (06:22→17:19)
[2024-06-29] MEDS: norepinephrine 4 MG/250 ML BAG 45 MG IV ×2 (06:29→12:23)
--- NOTE | 2024-06-29 06:38 | PC.NURSE ---
BiPAP: Notified Dr. Way of worsening lung sounds/crackled and increased shortness of breath. New order for BiPAP. PRN Precedex started for anxiety management.
--- NOTE | 2024-06-29 08:37 | PC.PHAR ---
patient wasn't able to verify if any meds or not, no pharmacy listed, called healthcare provider and left a message for callback to see if i can get any more info on if patient takes any meds or not
[2024-06-29 09:19] LABS: Basophils % 0.1 %; Hematocrit 29.2 % (37-53); Lymphocytes # 0.4 10^3/uL (0.8-4.8); Lymphocytes % 3.5 %; Mean Corpuscular HGB Conc 30.8 g/dL (30-55); Mean Corpuscular Hemoglobin 31.3 pg (27-33); Mean Corpuscular Volume 101.4 fl (82-101); Mean Platelet Volume 11.5 fL (7.4-10.4); Monocytes # 0.2 10^3/uL (0.2-0.9); Neutrophils # 9.51 10^3/uL (1.8-7.7); Neutrophils % 93.3 %; Nucleated Red Blood Cells # 0.1 /100WBC; Nucleated Red Blood Cells % 1.4 %; Platelet Count 133 10^3/cmm (157-399); Red Blood Count 2.88 10^6/uL (3.85-5.65); White Blood Count 10.19 10^3/uL (3.29-11.43)
[2024-06-29] MEDS: budesonide 0.5 mg/2 mL Neb INHALATION ×2 (09:38→19:46)
[2024-06-29 09:39] LABS: Alanine Aminotransferase 26 U/L (0-41); Alkaline Phosphatase 185 U/L (40-130); Anion Gap 15.4 (5-19); Aspartate Amino Transferase 45 U/L (0-40); Blood Urea Nitrogen 55 mg/dL (8-23); Calcium 7.4 mg/dL (8.5-10.5); Carbon Dioxide 23 mmol/L (22-29); Chloride 99 mmol/L (98-107); Creatinine Clr Calc Pharmacy 31.8277; Globulin 3.4 g/dL (1.3-4.6); Glucose 139 mg/dL (65-115); Magnesium 2.7 mg/dL (1.7-2.3); Osmolality Calculated 293 mOsm/kg (285-295); Phosphorus 5.3 mg/dL (2.5-4.5); Potassium 4.4 mmol/L (3.5-5.1); Sodium 133 mmol/L (136-145); Total Bilirubin 5.9 mg/dL (0.15-1.2); Total Protein 6.4 g/dL (6.6-8.7)
[2024-06-29 09:41] LABS: Partial Thromboplastin Time 50.9 SECONDS (23.9-36.7)
[2024-06-29] MEDS: metOLazone 5 MG Tablet PO (09:42)
[2024-06-29] MEDS: azithromycin 250 mg Tablet 500 MG PO (09:42)
[2024-06-29] MEDS: FUROsemide 100 MG in sodium chloride 0.9% 40 ML IV ×2 (09:42→15:18)
[2024-06-29] MEDS: magnesium sulfate premix 1 GM/100 ML PIGGYBACK IV (09:43)
[2024-06-29] MEDS: DOBUTamine drip 500 MG/250 ML PREMIX 15.54 MG IV (09:44)
[2024-06-29 09:48] LABS: Procalcitonin 0.88 ng/mL (0-0.5)
[2024-06-29 09:50] LABS: Estmated Average Glucose 85; Hemoglobin A1C 4.6 % (4.0-6.0)
[2024-06-29 09:59] LABS: Chol HDL Ratio 4.13 mg/dL (1.0-5.00); Cholesterol 95 mg/dL (0-200); HDL Cholesterol 23 mg/dL (60-100); LDL Cholesterol Calculated 59 mg/dL (50-129); LDL HDL Ratio 2.57 RATIO (0.00-3.22); Triglycerides 66 mg/dL (0-150)
[2024-06-29 10:04] LABS: Folate Level 11.2 ng/mL (4.5-32.2)
[2024-06-29 13:06] LABS: Ammonia 19 umol/L (16-60)
[2024-06-29] MEDS: FUROsemide 10 mg/mL SDV 10mL 100 MG IVP (15:18)
[2024-06-29] MEDS: sucralfate 1 gm/10 mL Oral Liq UDC PO ×2 (17:19→20:42)
--- NOTE | 2024-06-29 17:36 | P.PN_ITS ---
Vitals/I&O/Wt Last Vital Signs Temp 97.3 F L 06/29/24 12:00 Pulse 80 06/29/24 16:26 Resp 17 06/29/24 16:26 BP 113/66 06/29/24 15:15 Pulse Ox 96 06/29/24 16:26 O2 Del Method Heated High Flow 06/29/24 16:15 O2 Flow Rate 35 06/29/24 16:26 FiO2 40 06/29/24 16:26 06/29/24 06/29/24 06/29/24 06:59 14:59 22:59 Intake Total 1238.636 / 1688.219 799.75 / 799.75 28 / 827.75 Output Total 400 / 400 Balance 838.636 / 1288.219 799.75 / 799.75 28 / 827.75 Weight last 48 hrs Weight 86.319 kg Weight 87.815 kg Weight 87.543 kg Physical Exam 2 Narrative: General: No acute distress today, more somnolent, on waking up AO x 2 to 3, on high flow nasal cannula, sick appearing HEENT: PERRLA, pupils bilaterally equal and reactive Chest: Bilateral bronchial breath sounds all over lung barrera with decreased air entry in lower zone, fine crackles up to mid lungs CVS: S1-S2 regular, tachycardia present, soft pansystolic murmur at apex, S3 gallops, no rubs Abdomen: Soft, nontender, no organomegaly, bowel sounds present Neuro: No focal deficits, no facial deformity, AO x3, power 5/5 in all limbs Urinary Catheter Management: Griggs: Cath Placed During This Visit: yes Reason for Continuing Indwelling Catheter: Accurate Measurement of Urinary Output in Critically Ill Patients Urinary Catheter Date of Insertion: 06/28/24 Urinary Catheter Time of Insertion: 19:00 Data 06/29/24 08:48 06/29/24 08:48 Micro: Microbiology 06/28/24 15:45 Blood Culture - Preliminary Blood NEGATIVE TO DATE 06/28/24 15:26 Blood Culture - Preliminary Blood NEGATIVE TO DATE 06/28/24 19:50 Gram Stain - Final Sputum - Expectorated Sputum 06/28/24 19:02 Bacterial Antigens - Final Urine Kidney A&P Assessment and plan (1) Hypoxic respiratory failure: (2) MINGO (acute kidney injury): (3) Congestive heart failure: (4) Cardiogenic shock: (5) Elevated troponin: (6) Anemia: (7) Hyponatremia: (8) Thrombocytopenia: (9) Transaminitis: (10) Pulmonary embolism: (11) Liver cirrhosis: (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 Hypoxic respiratory failure: High likelihood of pulmonary embolism versus congestive heart failure. Appreciate troponin cycled. Troponin on admission 700 trending down to 650. D-dimer elevated to more than 9. ABG showed hypercapnia and hypoxia with concerns for pulmonary embolism. Unfortunately CTA cannot be done as patient has acute kidney injury with creatinine of 2.1. Discussed detail with need for anticoagulation which could be tricky because of ongoing anemia of unknown cause which could be because of bleeding versus anemia of chronic disease. Patient though denies any active bleeding currently. He is agreeable to hold off on contrast study for kidney protection and start on anticoagulation while monitoring his hemoglobin. Continue with heparin drip with concerns for pulmonary embolism being very high. Oxygen supplementation keeping saturation over 90%. Will start on nasal cannula for decreasing work of breathing. If needed we will switch over to high flow nasal cannula. Ipratropium, Xopenex every 6 hour, Pulmicort twice daily. Appreciate CT chest results. Does have concerns for emphysema. Wean Solu-Medrol to 40 mg every 12 hourly. Echocardiogram done shows an EF of 20 to 25%, severely reduced LV dysfunction, global LV hypokinesia of with severe hypokinesia of anteroseptal, anterolateral and apical wall, mildly increased RV size with fair LV systolic function severe MR, trace AI, moderate TR with RVSP of around 45 to 50 mmHg. Patient has had minimal urine output overnight. Will start on Lasix drip. Add metolazone 5 mg oral daily. Griggs catheterization. Strict input output charting, daily weights. Fluid restriction up to 1500 cc. Low concerns for pneumonia for now. MRSA swab negative, influenza and COVID-19 negative. Follow-up sputum culture. Anemia being demanding bleeding limiting being obtained at 8 AM and 8 AM and 8 AM maintaining for now as patient is critically sick we will continue IV Zosyn to finish a 5-day course, azithromycin to finish a 3-day course to cover for atypicals. Discontinue linezolid as MRSA swab negative. Cardiogenic shock: Maintain mean artery pressure over 65. Patient has poor urine output with concerns for severe LV dysfunction though lactate is improving. Continue with Levophed and wean keeping mean arterial pressure 65. Add dobutamine at 5 for at least next 72 hours. If not improving. Discontinue dobutamine. MINGO versus CKD: Do not have baseline creatinine. Medical reconciliation done for nephrotoxic drugs. CT abdomen pelvis ruled out obstructive nephropathy. Appreciate urinalysis, urine lites, urine creatinine, urine eosinophils. Fena?0.1 concerning for prerenal Repeat BMP later in the day. MINGO associated with hyponatremia for now. Hyponatremia could be in setting of congestive heart failure. Monitor daily. Elevated troponin: Most likely type II CO. Appreciate cardiology recommendations. Continue with heparin drip as above Continue with aspirin 81 mg daily. Hold off on statins for now given transaminitis Appreciate lipid panel, A1c. Anemia: Not sure of ongoing bleeding. Patient denies any melena. Check stool for occult blood. Post 2 unit of blood transfusion. Hemoglobin improved to 9. Repeat H&H in afternoon. As patient is on heparin drip. Appreciate iron panel, vitamin B12 and folate levels. Protonix 40 mg twice daily, Carafate before meals and at bedtime. Transaminitis: Concerns for cirrhosis seen on CT abdomen/pelvis. As patient does not have any history of following with PCP. Negative hepatitis panel, HIV, urine drug screen, alcohol level, Tylenol level, salicylate level. Monitor daily. Hold off on statin for now. Goals of care discussion: Discussed needed with the patient and caregiver at bedside. We discussed that unfortunately patient is significantly sick with symptoms concerning for congestive heart failure versus pulmonary embolism with concerns for multiorgan dysfunction. Discussed that there is a high chance patient would not survive anything if he does he would need to be on medications for life and most likely if this is going to be a prolonged hospitalization. Patient verbalized understanding and wants to go ahead with treatment. CODE STATUS: Discussed in detail with patient at bedside. Friend Moon Saleem will be the DPOA. Patient does not want any kind of aggressive measures in case of cardiac arrest. DNR/DNI Protonix twice daily for suppression of PUD prophylaxis Heparin drip will be sufficient for DVT prophylaxis. Severely guarded prognosis in setting of multiorgan dysfunction with MINGO, significantly elevated troponin with concerns for respiratory failure in setting of congestive heart failure versus pulmonary embolism requiring anticoagulation in a patient with setting of severe anemia requiring blood transfusion. Attestations 2 Medical Necessity Statement*: Requires further hospitalization for management of multiorgan dysfunction, cardiogenic shock in setting of cardiomyopathy with EF of 25%, MINGO, liver cirrhosis with transaminitis Critical Care Time: The high probability of a clinically significant, sudden or life threatening deterioration of the patient's [cardiac, renal, pulmonary, hepatic] system(s) required my full and direct attention, intervention and personal management. The critical care time is as shown. This time is in addition to time spent performing any reported procedures but includes the following: [x] Data and vital sign review and interpretation [x] Patient assessment, examination and intervention [x] Documentation [x] Medication orders and management Critical Care Time (min): 80 Coding Level of Care Code Critical Care >/= 30 minutes Critical care time (in minutes): 80 The high probability of a clinically significant, sudden or life threatening deterioration, as referenced in this documentation, required my full and direct attention, intervention and personal management. The critical care time shown is in addition to time spent performing any reported separately billable procedures and includes the following: [x] Data and vital sign review and interpretation [x ] Patient assessment, examination and intervention [x] Medication orders and management [x] Patient/Family updates as able [x] Care Coordination and Documentation. Diagnoses Hypoxic respiratory failure J96.91 MINGO (acute kidney injury) N17.9 Congestive heart failure I50.9 Cardiogenic shock R57.0 Elevated troponin R79.89 Anemia D64.9 Hyponatremia E87.1 Thrombocytopenia D69.6 Transaminitis R74.01 Pulmonary embolism I26.99 Liver cirrhosis K74.60 Multi-organ failure with heart failure I50.9
--- NOTE | 2024-06-29 17:38 | P.CONIM_ITS ---
Providers/Reason For Consult 2 Consulting Physician/Specialty*: Cardiology/Dr. Hector Reason for Consult*: Elevated cardiac troponin Requesting Physician: Dr. Puentes Attending Physician: Ab Levi MD Primary Care Provider: Marlon Burris DO History of Present Illness History of Present Illness Devyn Schwartz is a 69 year old male who admitted last night from ER with worsening symptoms of shortness of air, hypotension, low hemoglobin and elevated creatinine. There was also suspicious of lower respiratory tract infection and possible PE. The cardiac enzymes came back moderately elevated with flat response. Clinically no symptoms suggestive of angina. EKG showed nonspecific ST changes, and echo later on showed severely depressed LV systolic function LVEF of 25%. Currently patient is being managed for multi-organ failure, with active management of possible PE. He is on dobutamine to maintain pressures and urine output. Also on broad- spectrum antibiotics for possible bilateral pneumonia. Already received 2 units of red cells overnight for marked anemia. Review of Systems 2 Narrative: Detailed 10 point system review revealed worsening shortness of air during the last couple of weeks. Associated with marked tiredness and weakness. No chest pain. Rest of systemic review unremarkable. Medications/Allergies Home Medications Medication Instructions Recorded Confirmed Last Taken Type No Known Home Medications 08/11/23 06/29/24 Unknown History Allergies Allergy/AdvReac Type Severity Reaction Status Date / Time No Known Allergies Allergy Unverified 08/11/23 14:59 Current Medications Generic Name Dose Route Start Last Admin Trade Name Freq PRN Reason Stop Dose Admin Acetaminophen 650 mg 06/28/24 19:22 06/28/24 21:52 Acetaminophen 325 Mg Tablet PO 650 mg Q6H PRN Administration Mild/Mod Pain Or Temp >/= 101 Budesonide 0.5 mg 06/28/24 20:00 06/29/24 09:38 Budesonide 0.5 Mg/2 Ml Neb INHALATION 0.5 mg BID.RESPIRATORY MACEY Administration Heparin Sodium/Sodium Chloride 25,000 unit in 500 mls @ 0 mls/hr 06/28/24 16:15 06/29/24 10:03 Heparin Drip IV 10.85 unit/kg/hr CONT MACEY 19 mls/hr Titration Protocol Per Protocol Dexmedetomidine/Sodium Chloride 400 mcg in 100 mls @ 0 mls/hr 06/28/24 18:49 06/29/24 06:35 Precedex IV 0.2 mcg/kg/hr .Q0M MACEY 4.38 mls/hr Titration Protocol Per Protocol Piperacillin Sod/Tazobactam 50 mls @ 12.5 mls/hr 06/29/24 00:30 06/29/24 15:58 Sod 3.375 gm/ Sodium Chloride IV 12.5 mls/hr Q8H MACEY Administration Norepinephrine Bitartrate 4 mg in 250 mls @ 0 mls/hr 06/29/24 01:15 06/29/24 12:23 Levophed IV 12 mcg/min .Q0M MACEY 45 mls/hr Administration Protocol Per Protocol Furosemide 100 mg/ Sodium 50 mls @ 0 mls/hr 06/29/24 08:45 06/29/24 15:18 Chloride IV 10 mg/hr .Q0M MACEY 5 mls/hr Administration Protocol Per Protocol Dobutamine HCl/Dextrose 500 mg in 250 mls @ 0 mls/hr 06/29/24 08:45 06/29/24 09:44 Dobutamine Drip IV 6 mcg/kg/min .Q0M MACEY 15.54 mls/hr Administration Protocol Per Protocol Ipratropium Quinter 0.5 mg 06/29/24 02:00 06/29/24 16:23 Ipratropium 0.5 Mg/2.5 Ml Neb INHALATION 0.5 mg Q6H MACEY Administration Levalbuterol HCl 0.63 mg 06/28/24 20:00 06/29/24 16:23 Levalbuterol 0.63 Mg/3 Ml Neb INHALATION 0.63 mg Q6H.RESP MACEY Administration Methylprednisolone Sodium Succinate 40 mg 06/28/24 19:00 06/29/24 17:19 Methylprednisolone Sod Succ 40 Mg/Ml Inj IVP 40 mg Q6H MACEY Administration Metolazone 5 mg 06/29/24 09:00 06/29/24 09:42 Metolazone 5 Mg Tablet PO 5 mg DAILY MACEY Administration Morphine Sulfate 2 mg 06/28/24 23:22 06/29/24 02:54 Morphine 4 Mg/Ml Sdv 1 Ml IVP 2 mg Q2H PRN Administration SEVERE PAIN Pantoprazole Sodium 40 mg 06/28/24 18:21 06/29/24 17:20 Pantoprazole 40 Mg Sdv IVP 40 mg Q12H MACEY Administration Sucralfate 1 gm 06/28/24 21:00 06/29/24 17:19 Sucralfate 1 Gm/10 Ml Oral Liq Udc PO 1 gm AC&BEDTIME MACEY Administration PFSH Acute 2 PFSH: Medical History Does not have primary care provider Surgical History History of ankle surgery Hx of tonsillectomy Social History Smoking and tobacco/nicotine status: current every day tobacco/nicotine user smokeless tobacco Alcohol intake: former Substance/Drug Use: never Adopted: No Caregiver/support person: No Lives independently: Yes Housing: House Marital status: Single Number of children: 0 service: No Vitals/I&O/Wt Last Vital Signs Temp 97.3 F L 06/29/24 12:00 Pulse 80 06/29/24 16:26 Resp 17 06/29/24 16:26 BP 113/66 06/29/24 15:15 Pulse Ox 96 06/29/24 16:26 O2 Del Method Heated High Flow 06/29/24 16:15 O2 Flow Rate 35 06/29/24 16:26 FiO2 40 06/29/24 16:26 06/29/24 06/29/24 06/29/24 06:59 14:59 22:59 Intake Total 1238.636 / 1688.219 799.75 / 799.75 28 / 827.75 Output Total 400 / 400 Balance 838.636 / 1288.219 799.75 / 799.75 28 / 827.75 Weight last 48 hrs Weight 190 lb 4.8 oz Weight 193 lb 9.6 oz Weight 193 lb Physical Exam 2 Narrative: Patient laying on his bed in ICU. He is not in any respiratory or otherwise distress. Const: COMMON NORMALS: no acute distress OTHER: Patient is lethargic but awake HENMT: OTHER: Unremarkable. Chest: COMMONS NORMALS: normal inspection of the chest OTHER: No tenderness Resp: OTHER: Patient is mildly tachypneic. Decreased air entry at the bases. No added sounds. Cardio: OTHER: Difficult to assess jugular venous pulsation. Normal first and second heart sounds. GI: OTHER: Abdominal soft nontender. Bowel sounds audible. Extremity: OTHER: Trace pedal edema. Extremities are cold. Neuro: OTHER: Difficult to assess detailed neuro exam patient is awake and move all 4 limbs. Skin: OTHER: Skin over prophylaxis is cold. Urinary Catheter Management: Griggs: Cath Placed During This Visit: yes Reason for Continuing Indwelling Catheter: Accurate Measurement of Urinary Output in Critically Ill Patients Urinary Catheter Date of Insertion: 06/28/24 Urinary Catheter Time of Insertion: 19:00 Data 06/29/24 08:48 06/29/24 08:48 Micro: Microbiology 06/28/24 15:45 Blood Culture - Preliminary Blood NEGATIVE TO DATE 06/28/24 15:26 Blood Culture - Preliminary Blood NEGATIVE TO DATE 06/28/24 19:50 Gram Stain - Final Sputum - Expectorated Sputum 06/28/24 19:02 Bacterial Antigens - Final Urine Kidney A&P Assessment and plan (1) Multi-organ failure with heart failure: 69-year-old male patient with multiorgan failure in the setting of heart failure, low LVEF 25%. Clinically no active angina. The minimally flat elevated cardiac troponin secondary to current multiorgan failure status as well as congestive heart failure and elevated creatinine. Considering current overall clinical scenario, no indication of any active cardiac intervention. I agree with the supportive and symptomatic treatment as per ICU team. The heparin intravenous infusion can be continued considering possibility of PE. (2) Cardiogenic shock: (3) Congestive heart failure: Coding Level of Care Code 75818 Diagnoses Multi-organ failure with heart failure I50.9 Cardiogenic shock R57.0 Congestive heart failure I50.9 Time Spent (min) 30
[2024-06-29 18:02] LABS: Partial Thromboplastin Time 71.4 SECONDS (23.9-36.7)
--- NOTE | 2024-06-29 19:00 | PC.NURSE ---
Dobutamine Upon assessment of patient, dobutamine administering at 5 mcg/kg/min while MAR displayed 6 mcg/kg/min. MAR updated to reflect administration.
--- NOTE | 2024-06-29 19:23 | PC.NURSE ---
Addendum entered by Savanna Jones RN 06/29/24 23:08: Once found, nitro paste removed. Original Note: During bedside report, nitro paste found on patient right chest.
[2024-06-29 20:28] LABS: Hematocrit 26.5 % (37-53)
[2024-06-29] MEDS: lanolin oint 7 gm 1 APPLIC TOPICAL (20:43)
[2024-06-29 20:52] LABS: Anion Gap 16.7 (5-19); Blood Urea Nitrogen 61 mg/dL (8-23); Calcium 7.2 mg/dL (8.5-10.5); Carbon Dioxide 22 mmol/L (22-29); Chloride 99 mmol/L (98-107); Creatinine Clr Calc Pharmacy 30.5546; Glucose 143 mg/dL (65-115); Osmolality Calculated 298 mOsm/kg (285-295); Potassium 3.7 mmol/L (3.5-5.1); Sodium 134 mmol/L (136-145)
[2024-06-29 20:54] LABS: Glucose Point of Care 143 mg/dL (70-110)
--- NOTE | 2024-06-29 21:30 | PC.NURSE ---
Temperature Patient's axillary temperature temperature 96.5F. Ottoniel lanza applied and Dr. Way notified.
[2024-06-29] MEDS: FUROsemide 100 MG in sodium chloride 0.9% 40 ML 20 MG IV (23:20)
[2024-06-30] VITALS (105 sets, daily range): BP systolic 84–130; BP diastolic 45–93; PULSE 81–121; RESP 10–40; TEMP 36.1–36.6; O2SAT 85–100; BMI 27.3
[2024-06-30] MEDS: morphine 4 mg/mL SDV 1 mL 2 MG IVP ×5 (00:02→20:58)
[2024-06-30] MEDS: piperacillin-tazobactam 3.375 GM in sodium chloride 0.9% (plus) 50 ML IV ×3 (00:04→17:19)
[2024-06-30] MEDS: fludrocortisone 0.1 mg Tablet PO ×3 (00:25→17:20)
[2024-06-30] MEDS: lanolin oint 7 gm 1 APPLIC TOPICAL ×2 (00:27→06:37)
--- NOTE | 2024-06-30 00:30 | PC.NURSE ---
Physician Communication Patient's urine output less than 1ml/kg/hr with the lasix drip administering at 40 mg/hr, levophed administering at 10 mcg/min, and dobutamine at 5 mcg/kg/min. Dr. Way on unit and update on patient status given. Physician to place orders for steroid, lasix to remain at 40 mg/hr for now.
[2024-06-30] MEDS: heparin drip 25,000 UNIT/500 ML PREMIX 19 UNIT IV (01:00)
[2024-06-30] MEDS: levalbuterol 0.63 mg/3 mL Neb INHALATION ×4 (01:19→20:27)
[2024-06-30] MEDS: ipratropium 0.5 mg/2.5 mL Neb INHALATION ×4 (01:19→20:27)
[2024-06-30 01:22] LABS: Partial Thromboplastin Time 54.4 SECONDS (23.9-36.7)
[2024-06-30] MEDS: heparin 5,000 unit/mL INJ 1 mL IVP (01:52)
[2024-06-30] MEDS: norepinephrine 4 MG/250 ML BAG 37.5 MG IV (01:57)
[2024-06-30] MEDS: FUROsemide 100 MG in sodium chloride 0.9% 40 ML 20 MG IV ×4 (02:12→14:46)
--- NOTE | 2024-06-30 02:30 | PC.NURSE ---
Lasix Drip Patient's urine output is remaining less than 1 ml/kg/hr with the lasix drip administering at 40 mg/hr. Dr. Way consulted; order received to increase lasix drip to 60 mg/hr.
[2024-06-30] MEDS: DOBUTamine drip 500 MG/250 ML PREMIX 12.95 MG IV ×2 (03:37→22:04)
[2024-06-30] MEDS: FUROsemide 100 MG in sodium chloride 0.9% 40 ML 30 MG IV ×4 (04:07→10:00)
[2024-06-30 04:21] LABS: Basophils % 0.1 %; Hematocrit 26.7 % (37-53); Lymphocytes # 0.2 10^3/uL (0.8-4.8); Lymphocytes % 1.8 %; Mean Corpuscular HGB Conc 31.1 g/dL (30-55); Mean Corpuscular Hemoglobin 31.2 pg (27-33); Mean Corpuscular Volume 100.4 fl (82-101); Monocytes # 0.2 10^3/uL (0.2-0.9); Monocytes % 2.3 %; Neutrophils # 8.94 10^3/uL (1.8-7.7); Neutrophils % 94.4 %; Nucleated Red Blood Cells % 0.4 %; Platelet Count 69 10^3/cmm (157-399); Red Blood Count 2.66 10^6/uL (3.85-5.65); Red Cell Distribution Width 24.2 % (12.1-15.1); White Blood Count 9.47 10^3/uL (3.29-11.43)
[2024-06-30 04:43] LABS: Alanine Aminotransferase 23 U/L (0-41); Albumin Level 2.8 g/dL (3.5-5.2); Alkaline Phosphatase 172 U/L (40-130); Anion Gap 15.7 (5-19); Aspartate Amino Transferase 39 U/L (0-40); Blood Urea Nitrogen 63 mg/dL (8-23); Calcium 7.2 mg/dL (8.5-10.5); Carbon Dioxide 24 mmol/L (22-29); Chloride 100 mmol/L (98-107); Creatinine Clr Calc Pharmacy 27.2809; Globulin 3.4 g/dL (1.3-4.6); Glucose 116 mg/dL (65-115); Osmolality Calculated 301 mOsm/kg (285-295); Potassium 3.7 mmol/L (3.5-5.1); Sodium 136 mmol/L (136-145); Total Bilirubin 3.8 mg/dL (0.15-1.2); Total Protein 6.2 g/dL (6.6-8.7)
[2024-06-30] MEDS: methylPREDNISolone sod succ 40 mg/mL INJ IVP ×2 (06:01→17:20)
[2024-06-30] MEDS: pantoprazole 40 mg SDV IVP ×2 (06:02→17:20)
[2024-06-30] MEDS: sucralfate 1 gm/10 mL Oral Liq UDC PO ×3 (06:10→20:50)
[2024-06-30] MEDS: AZITHROMYCIN ADD-Vantage 500 MG in 0.9% NaCl ADD-Vantage 250 ML 250 MG IV (08:07)
[2024-06-30 08:25] LABS: Partial Thromboplastin Time 101.8 SECONDS (23.9-36.7)
--- NOTE | 2024-06-30 09:00 | PC.NURSE ---
am care done frequent yelling out but when in room can answer all question appropriate levophed and dobutrex , lasix and heparin infusing oral care done doctor here exam pt
[2024-06-30] MEDS: metOLazone 5 MG Tablet PO (09:33)
[2024-06-30] MEDS: norepinephrine 4 MG/250 ML BAG 26.25 MG IV (09:33)
[2024-06-30] MEDS: budesonide 0.5 mg/2 mL Neb INHALATION ×2 (09:35→20:27)
--- NOTE | 2024-06-30 11:30 | PC.NURSE ---
visitor at bedside pain medication given prior having conversation with her but then will yell out for no reason
--- NOTE | 2024-06-30 13:53 | P.PN_ITS ---
Subjective 2 Subjective: No overnight events. Slightly more alert today. Reports having some pain. Medications: Reviewed: Yes Vitals/I&O/Wt Last Vital Signs Temp 97.9 F 06/30/24 04:15 Pulse 89 06/30/24 13:30 Resp 15 06/30/24 13:30 BP 101/53 06/30/24 13:30 Pulse Ox 98 06/30/24 13:30 O2 Del Method Nasal Cannula 06/30/24 09:35 O2 Flow Rate 3 06/30/24 09:35 FiO2 40 06/30/24 00:15 06/29/24 06/30/24 06/30/24 22:59 06:59 14:59 Intake Total 822.004 / 1627.959 995.605 / 2623.564 836.230 / 836.230 Output Total 290 / 290 815 / 1105 480 / 480 Balance 532.004 / 1337.959 180.605 / 1518.564 356.230 / 356.230 Weight last 48 hrs Weight 196 lb 3.382 oz Weight 196 lb 3.382 oz Weight 190 lb 4.8 oz Weight 193 lb 9.6 oz Weight 193 lb Physical Exam 2 Narrative: General: No acute distress today, more somnolent, alert, oriented x 2. High flow nasal cannula, sick appearing HEENT: PERRLA, pupils bilaterally equal and reactive Chest: Bilateral bronchial breath sounds all over lung barrera with decreased air entry in lower zone, fine crackles up to mid lungs Heart: S1-S2 regular, tachycardia present, soft pansystolic murmur at apex, S3 gallops, no rubs Abdomen: Soft, nontender, no organomegaly, bowel sounds present Neuro: No focal motor or sensory deficits. Urinary Catheter Management: Griggs: Cath Placed During This Visit: yes Reason for Continuing Indwelling Catheter: Accurate Measurement of Urinary Output in Critically Ill Patients Urinary Catheter Date of Insertion: 06/28/24 Urinary Catheter Time of Insertion: 19:00 Data 06/30/24 04:00 06/30/24 04:00 Micro: Microbiology 06/28/24 15:45 Blood Culture - Preliminary Blood NEGATIVE TO DATE 06/28/24 15:26 Blood Culture - Preliminary Blood NEGATIVE TO DATE 06/28/24 19:50 Gram Stain - Final Sputum - Expectorated Sputum 06/28/24 19:02 Bacterial Antigens - Final Urine Kidney A&P Assessment and plan (1) Hypoxic respiratory failure: (2) MINGO (acute kidney injury): (3) Congestive heart failure: (4) Cardiogenic shock: (5) Elevated troponin: (6) Anemia: (7) Hyponatremia: (8) Thrombocytopenia: (9) Transaminitis: (10) Pulmonary embolism: (11) Liver cirrhosis: (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 Hypoxic respiratory failure: High likelihood of pulmonary embolism versus congestive heart failure. Appreciate troponin cycled. Troponin on admission 700 trending down to 650. D-dimer elevated to more than 9. ABG showed hypercapnia and hypoxia with concerns for pulmonary embolism. Unfortunately CTA cannot be done as patient has acute kidney injury with creatinine of 2.1. Discussed detail with need for anticoagulation which could be tricky because of ongoing anemia of unknown cause which could be because of bleeding versus anemia of chronic disease. Patient though denies any active bleeding currently. He is agreeable to hold off on contrast study for kidney protection and start on anticoagulation while monitoring his hemoglobin. Continue with heparin drip with concerns for pulmonary embolism being very high. Oxygen supplementation keeping saturation over 90%. Will start on nasal cannula for decreasing work of breathing. If needed we will switch over to high flow nasal cannula. Ipratropium, Xopenex every 6 hour, Pulmicort twice daily. Appreciate CT chest results. Does have concerns for emphysema. Wean Solu-Medrol to 40 mg every 12 hourly. Echocardiogram done shows an EF of 20 to 25%, severely reduced LV dysfunction, global LV hypokinesia of with severe hypokinesia of anteroseptal, anterolateral and apical wall, mildly increased RV size with fair LV systolic function severe MR, trace AI, moderate TR with RVSP of around 45 to 50 mmHg. Patient has had minimal urine output overnight. Will start on Lasix drip. Add metolazone 5 mg oral daily. Griggs catheterization. Strict input output charting, daily weights. Fluid restriction up to 1500 cc. Low concerns for pneumonia for now. MRSA swab negative, influenza and COVID-19 negative. Follow-up sputum culture. Anemia being demanding bleeding limiting being obtained at 8 AM and 8 AM and 8 AM maintaining for now as patient is critically sick we will continue IV Zosyn to finish a 5-day course, azithromycin to finish a 3-day course to cover for atypicals. Discontinue linezolid as MRSA swab negative. Cardiogenic shock: Maintain mean artery pressure over 65. Patient has poor urine output with concerns for severe LV dysfunction though lactate is improving. Continue with Levophed and wean keeping mean arterial pressure 65. Add dobutamine at 5 for at least next 72 hours. If not improving. Discontinue dobutamine. MINGO versus CKD: Do not have baseline creatinine. Medical reconciliation done for nephrotoxic drugs. CT abdomen pelvis ruled out obstructive nephropathy. Appreciate urinalysis, urine lites, urine creatinine, urine eosinophils. Fena?0.1 concerning for prerenal Repeat BMP later in the day. MINGO associated with hyponatremia for now. Hyponatremia could be in setting of congestive heart failure. Monitor daily. Elevated troponin: Most likely type II PA. Appreciate cardiology recommendations. Continue with heparin drip as above Continue with aspirin 81 mg daily. Hold off on statins for now given transaminitis Appreciate lipid panel, A1c. Anemia: Not sure of ongoing bleeding. Patient denies any melena. Check stool for occult blood. Post 2 unit of blood transfusion. Hemoglobin improved to 9. Repeat H&H in afternoon. As patient is on heparin drip. Appreciate iron panel, vitamin B12 and folate levels. Protonix 40 mg twice daily, Carafate before meals and at bedtime. Transaminitis: Concerns for cirrhosis seen on CT abdomen/pelvis. As patient does not have any history of following with PCP. Negative hepatitis panel, HIV, urine drug screen, alcohol level, Tylenol level, salicylate level. Monitor daily. Hold off on statin for now. Goals of care discussion: Discussed needed with the patient and caregiver at bedside. We discussed that unfortunately patient is significantly sick with symptoms concerning for congestive heart failure versus pulmonary embolism with concerns for multiorgan dysfunction. Discussed that there is a high chance patient would not survive anything if he does he would need to be on medications for life and most likely if this is going to be a prolonged hospitalization. Patient verbalized understanding and wants to go ahead with treatment. CODE STATUS: Discussed in detail with patient at bedside. Friend Moon Saleem will be the DPOA. Patient does not want any kind of aggressive measures in case of cardiac arrest. DNR/DNI Protonix twice daily for suppression of PUD prophylaxis Heparin drip will be sufficient for DVT prophylaxis. Severely guarded prognosis in setting of multiorgan dysfunction with MINGO, significantly elevated troponin with concerns for respiratory failure in setting of congestive heart failure versus pulmonary embolism requiring anticoagulation in a patient with setting of severe anemia requiring blood transfusion. PLAN FOR TODAY: Continue close ICU monitoring. Begin titrating off of Lasix. Will plan to be at IV push by tomorrow morning. Recheck PTT and potassium. Continue oxygen supplementation and RAAT. Hemoglobin currently at 8.3. Platelet count is down to 69. BUN at 63, creatinine at 2.8. Nephrology is consulted and appreciate their involvement. Multiorgan failure is evident with MINGO, elevated bilirubin, and thrombocytopenia. Sputum is growing gram-negative rods. Currently on Zosyn and linezolid. Blood cultures negative today. Weaned off of vasopressors. PT, OT, speech therapy ordered. Code Status: Allow natural IVF: none DVT PPx: Heparin GI PPx: Protonix ABx: Zosyn, linezolid, azithromycin Diet: N.p.o. Discharge plan: To be determined. Attestations 2 Medical Necessity Statement*: Requires further hospitalization for management of multiorgan dysfunction, cardiogenic shock in setting of cardiomyopathy with EF of 25%, MINGO, liver cirrhosis with transaminitis Critical Care Time: The high probability of a clinically significant, sudden or life threatening deterioration of the patient's [cardiac, renal, pulmonary, hepatic] system(s) required my full and direct attention, intervention and personal management. The critical care time is as shown. This time is in addition to time spent performing any reported procedures but includes the following: [x] Data and vital sign review and interpretation [x] Patient assessment, examination and intervention [x] Documentation [x] Medication orders and management Critical Care Time (min): 80 Coding Level of Care Code Critical Care >/= 30 minutes Critical care time (in minutes): 47 The high probability of a clinically significant, sudden or life threatening deterioration, as referenced in this documentation, required my full and direct attention, intervention and personal management. The critical care time shown is in addition to time spent performing any reported separately billable procedures and includes the following: [x] Data and vital sign review and interpretation [x ] Patient assessment, examination and intervention [x] Medication orders and management [x] Patient/Family updates as able [x] Care Coordination and Documentation. Diagnoses Hypoxic respiratory failure J96.91 MINGO (acute kidney injury) N17.9 Congestive heart failure I50.9 Cardiogenic shock R57.0 Elevated troponin R79.89 Anemia D64.9 Hyponatremia E87.1 Thrombocytopenia D69.6 Transaminitis R74.01 Pulmonary embolism I26.99 Liver cirrhosis K74.60 Multi-organ failure with heart failure I50.9
[2024-06-30 19:13] LABS: Anion Gap 16.3 (5-19); Blood Urea Nitrogen 66 mg/dL (8-23); Calcium 7.2 mg/dL (8.5-10.5); Carbon Dioxide 24 mmol/L (22-29); Chloride 100 mmol/L (98-107); Creatinine Clr Calc Pharmacy 26.6945; Glucose 102 mg/dL (65-115); Osmolality Calculated 303 mOsm/kg (285-295); Potassium 3.3 mmol/L (3.5-5.1); Sodium 137 mmol/L (136-145)
[2024-06-30 19:17] LABS: Partial Thromboplastin Time 68.8 SECONDS (23.9-36.7)
[2024-06-30] MEDS: lidocaine 1% 5 ML in potassium chloride premix 100 ML 26.25 ML IV (19:38)
--- NOTE | 2024-06-30 22:00 | ECG_ITS ---
[facility] Date: 2024-06-30 Pat Name: Devyn Schwartz Department: Room: ICU12 Gender: Male Sales Support Consultant: : [id number] Requested By: Amanuel Garvin Order Number: [id number] Srinivasa MD: Austen Hector M.D. Measurements Intervals Brush Rate: 110 P: 0 AZ: 0 QRS: 64 QRSD: 146 T: -73 QT: 322 QTc: 436 Interpretive Statements ATRIAL FIBRILLATION WITH RAPID VENTRICULAR RESPONSE RIGHT BUNDLE BRANCH BLOCK MODERATE ST ABNORMALITY, CONSIDER INFERIOR ISCHEMIA Compared to ECG 06/29/2024 01:25:12 Sinus rhythm no longer present Electronically Signed On 07-01-2024 12:24:49 CDT by Austen Hector M.D. [email or web address]
--- NOTE | 2024-06-30 22:34 | PC.NURSE ---
Afib Patient's cardiac rhythm changed to afib, HR maintaining 110-125. EKG obtained. Patient update including urine output, blood pressure, current drips, and rhythm change discussed with Dr. Way. Order received to wean dobutamine to 3 mcg/kg/min, then turn off.
--- NOTE | 2024-06-30 22:59 | PC.NURSE ---
Potassium PO Order active for 80 meq total of potassium chloride PO in two 40 meq doses scheduled. 40 meq KCL currently administering IV. Dr. Way contacted and physician changed order to administer total of 40 meq kcl PO once.
[2024-06-30] MEDS: potassium chloride ER 20 mEq Tablet 40 MEQ PO (23:06)
[2024-07-01] VITALS (89 sets, daily range): BP systolic 85–137; BP diastolic 41–91; PULSE 76–123; RESP 8–39; TEMP 36.3–36.5; O2SAT 83–100; BMI 26.2
[2024-07-01] MEDS: piperacillin-tazobactam 3.375 GM in sodium chloride 0.9% (plus) 50 ML IV (00:41)
--- NOTE | 2024-07-01 01:26 | XRR_ITS ---
PROCEDURE INFORMATION: Exam: XR Chest Exam date and time: 07/01/2024 8:35 AM Age: 69 years old Clinical indication: Shortness of breath; Additional info: Adventitious lung sounds TECHNIQUE: Imaging protocol: Radiologic exam of the chest. Views: 1 view. COMPARISON: CT chest abdpel [id number] 06/28/2024 6:33 PM FINDINGS: Lungs: Mild emphysema. New left upper lobe consolidation. Ground-glass opacities bilaterally, may reflect infection or edema. Pleural spaces: No sizable pleural effusion or pneumothorax. Heart/Mediastinum: No cardiomegaly. Bones/joints: Unremarkable. XR/XR chest 1V portable [id number] IMPRESSION: 1. Small left pleural effusion with new left upper lobe consolidation, concerning for pneumonia. 2. Ground-glass opacities bilaterally, may reflect infection or edema.
--- NOTE | 2024-07-01 01:28 | PC.NURSE ---
Chest Xray Upon entering patient room, patient noted to have audible wet breath sounds. Furthermore, coarse crackles and expiratory wheezing heard while auscultating patient's left lung. Dr. Way notified; order received for chest xray.
[2024-07-01] MEDS: metoprolol tartrate 1 mg/1 mL SDV 5 mL 2.5 MG IVP (01:47)
--- NOTE | 2024-07-01 02:42 | PC.NURSE ---
Dobutamine Dr. Way on unit; order received to restart dobutamine at 3 mcg/kg/min.
[2024-07-01] MEDS: ipratropium 0.5 mg/2.5 mL Neb INHALATION ×4 (03:10→20:14)
[2024-07-01] MEDS: levalbuterol 0.63 mg/3 mL Neb INHALATION ×4 (03:11→20:14)
[2024-07-01] MEDS: methylPREDNISolone sod succ 40 mg/mL INJ IVP ×2 (05:24→17:12)
[2024-07-01] MEDS: pantoprazole 40 mg SDV IVP ×2 (05:24→17:12)
[2024-07-01 05:27] LABS: Partial Thromboplastin Time 58.5 SECONDS (23.9-36.7)
[2024-07-01] MEDS: heparin drip 25,000 UNIT/500 ML PREMIX 17 UNIT IV (05:44)
--- NOTE | 2024-07-01 06:15 | PC.NURSE ---
Labs Order received from Dr. Way for morning cmp/cbc.
[2024-07-01 06:28] LABS: Alanine Aminotransferase 26 U/L (0-41); Albumin Level 2.9 g/dL (3.5-5.2); Alkaline Phosphatase 132 U/L (40-130); Anion Gap 17.4 (5-19); Aspartate Amino Transferase 43 U/L (0-40); Blood Urea Nitrogen 67 mg/dL (8-23); Calcium 7.1 mg/dL (8.5-10.5); Carbon Dioxide 26 mmol/L (22-29); Chloride 98 mmol/L (98-107); Creatinine Clr Calc Pharmacy 27.1688; Globulin 3.3 g/dL (1.3-4.6); Glucose 99 mg/dL (65-115); Osmolality Calculated 305 mOsm/kg (285-295); Potassium 3.4 mmol/L (3.5-5.1); Sodium 138 mmol/L (136-145); Total Bilirubin 3.7 mg/dL (0.15-1.2); Total Protein 6.2 g/dL (6.6-8.7)
[2024-07-01 06:46] LABS: Basophils % 0.1 %; Hematocrit 28.9 % (37-53); Lymphocytes # 0.1 10^3/uL (0.8-4.8); Lymphocytes % 1.2 %; Mean Corpuscular HGB Conc 30.8 g/dL (30-55); Mean Platelet Volume 12.8 fL (7.4-10.4); Monocytes # 0.2 10^3/uL (0.2-0.9); Monocytes % 2.3 %; Neutrophils % 95.1 %; Nucleated Red Blood Cells % 0.4 %; Platelet Count 52 10^3/cmm (157-399); Red Blood Count 2.78 10^6/uL (3.85-5.65); White Blood Count 10.09 10^3/uL (3.29-11.43)
--- NOTE | 2024-07-01 08:03 | P.PN_ITS ---
Subjective 2 Subjective: Patient remains difficult to communicate with. He is able to answer some questions, but he is having a lot of difficulty conversing. He expresses having pain, but he is unable to say where. Medications: Reviewed: Yes Vitals/I&O/Wt Last Vital Signs Temp 97.7 F 07/01/24 06:00 Pulse 82 07/01/24 06:16 Resp 22 H 07/01/24 06:00 BP 109/68 07/01/24 06:00 Pulse Ox 96 07/01/24 06:00 O2 Del Method Nasal Cannula 07/01/24 06:00 O2 Flow Rate 3 07/01/24 06:00 FiO2 40 06/30/24 00:15 06/30/24 07/01/24 07/01/24 22:59 06:59 14:59 Intake Total 540.951 / 1383.514 309.796 / 1693.310 Output Total 1945 / 2575 1800 / 4375 Balance -1404.049 / -1191.486 -1490.204 / -2681.690 Weight last 48 hrs Weight 188 lb 7.924 oz Weight 196 lb 3.382 oz Weight 196 lb 3.382 oz Physical Exam 2 Narrative: General: No acute distress today, more somnolent, alert, oriented x 2. High flow nasal cannula, sick appearing HEENT: PERRLA, pupils bilaterally equal and reactive Chest: Bilateral bronchial breath sounds all over lung barrera with decreased air entry in lower zone, fine crackles up to mid lungs Heart: S1-S2 regular, tachycardia present, soft pansystolic murmur at apex, S3 gallops, no rubs Abdomen: Soft, nontender, no organomegaly, bowel sounds present Neuro: No focal motor or sensory deficits. Urinary Catheter Management: Griggs: Cath Placed During This Visit: yes Reason for Continuing Indwelling Catheter: Accurate Measurement of Urinary Output in Critically Ill Patients Urinary Catheter Date of Insertion: 06/28/24 Urinary Catheter Time of Insertion: 19:00 Data 07/01/24 05:00 07/01/24 05:00 Micro: Microbiology 06/28/24 19:50 Gram Stain - Final Sputum - Expectorated Sputum Sputum Culture - Preliminary Gram Negative Rods A&P Assessment and plan (1) Hypoxic respiratory failure: (2) MINGO (acute kidney injury): (3) Congestive heart failure: (4) Cardiogenic shock: (5) Elevated troponin: (6) Anemia: (7) Hyponatremia: (8) Thrombocytopenia: (9) Transaminitis: (10) Pulmonary embolism: (11) Liver cirrhosis: (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 Hypoxic respiratory failure: High likelihood of pulmonary embolism versus congestive heart failure. Appreciate troponin cycled. Troponin on admission 700 trending down to 650. D-dimer elevated to more than 9. ABG showed hypercapnia and hypoxia with concerns for pulmonary embolism. Unfortunately CTA cannot be done as patient has acute kidney injury with creatinine of 2.1. Discussed detail with need for anticoagulation which could be tricky because of ongoing anemia of unknown cause which could be because of bleeding versus anemia of chronic disease. Patient though denies any active bleeding currently. He is agreeable to hold off on contrast study for kidney protection and start on anticoagulation while monitoring his hemoglobin. Continue with heparin drip with concerns for pulmonary embolism being very high. Oxygen supplementation keeping saturation over 90%. Will start on nasal cannula for decreasing work of breathing. If needed we will switch over to high flow nasal cannula. Ipratropium, Xopenex every 6 hour, Pulmicort twice daily. Appreciate CT chest results. Does have concerns for emphysema. Wean Solu-Medrol to 40 mg every 12 hourly. Echocardiogram done shows an EF of 20 to 25%, severely reduced LV dysfunction, global LV hypokinesia of with severe hypokinesia of anteroseptal, anterolateral and apical wall, mildly increased RV size with fair LV systolic function severe MR, trace AI, moderate TR with RVSP of around 45 to 50 mmHg. Patient has had minimal urine output overnight. Will start on Lasix drip. Add metolazone 5 mg oral daily. Griggs catheterization. Strict input output charting, daily weights. Fluid restriction up to 1500 cc. Goals of care discussion: Discussed needed with the patient and caregiver at bedside. We discussed that unfortunately patient is significantly sick with symptoms concerning for congestive heart failure versus pulmonary embolism with concerns for multiorgan dysfunction. Discussed that there is a high chance patient would not survive anything if he does he would need to be on medications for life and most likely if this is going to be a prolonged hospitalization. Patient verbalized understanding and wants to go ahead with treatment. CODE STATUS: Discussed in detail with patient at bedside. Friend Moon Saleem will be the DPOA. Patient does not want any kind of aggressive measures in case of cardiac arrest. DNR/DNI Protonix twice daily for suppression of PUD prophylaxis Heparin drip will be sufficient for DVT prophylaxis. Severely guarded prognosis in setting of multiorgan dysfunction with MINGO, significantly elevated troponin with concerns for respiratory failure in setting of congestive heart failure versus pulmonary embolism requiring anticoagulation in a patient with setting of severe anemia requiring blood transfusion. PLAN FOR TODAY: Continue close ICU monitoring. Platelets are down to 68. I will discontinue the Zosyn and start him on cefepime every 24 hours. Discontinue Lasix drip and started on IV push 60 every 12 hours. Will provide potassium replacement daily. Recheck PTT and potassium. His echo did show his heart function at 25%. Continue oxygen supplementation and RAAT. Hemoglobin currently at 8.9. Platelet count is down to 52. BUN at 63, creatinine at 2.8. Nephrology is consulted and appreciate their involvement. Multiorgan failure is evident with MINGO, elevated bilirubin, and thrombocytopenia. Sputum is growing gram-negative rods. Discontinue Zosyn and will start cefepime due to renal failure and low platelets. Blood cultures negative today. He is currently on dobutamine for blood pressure support. PT, OT, speech therapy ordered. Speech recommended n.p.o. due to aspiration pneumonia. Code Status: Allow natural IVF: none DVT PPx: Heparin GI PPx: Protonix ABx: Zosyn, azithromycin Diet: N.p.o. Discharge plan: To be determined. Attestations 2 Medical Necessity Statement*: Requires further hospitalization for management of multiorgan dysfunction, cardiogenic shock in setting of cardiomyopathy with EF of 25%, MINGO, liver cirrhosis with transaminitis Critical Care Time: The high probability of a clinically significant, sudden or life threatening deterioration of the patient's [cardiac, renal, pulmonary, hepatic] system(s) required my full and direct attention, intervention and personal management. The critical care time is as shown. This time is in addition to time spent performing any reported procedures but includes the following: [x] Data and vital sign review and interpretation [x] Patient assessment, examination and intervention [x] Documentation [x] Medication orders and management Critical Care Time (min): 80 Coding Level of Care Code Critical Care >/= 30 minutes Diagnoses Hypoxic respiratory failure J96.91 MINGO (acute kidney injury) N17.9 Congestive heart failure I50.9 Cardiogenic shock R57.0 Elevated troponin R79.89 Anemia D64.9 Hyponatremia E87.1 Thrombocytopenia D69.6 Transaminitis R74.01 Pulmonary embolism I26.99 Liver cirrhosis K74.60 Multi-organ failure with heart failure I50.9
[2024-07-01] MEDS: budesonide 0.5 mg/2 mL Neb INHALATION ×2 (08:21→20:14)
[2024-07-01] MEDS: lidocaine 1% 5 ML in potassium chloride premix 100 ML 26.25 ML IV (09:01)
[2024-07-01] MEDS: AZITHROMYCIN ADD-Vantage 500 MG in 0.9% NaCl ADD-Vantage 250 ML 250 MG IV (09:01)
[2024-07-01] MEDS: FUROsemide 10 mg/mL SDV 10mL 60 MG IVP ×2 (09:02→19:45)
[2024-07-01] MEDS: cefepime 1,000 MG in sodium chloride 0.9% (plus) 50 ML 100 MG IV (09:08)
[2024-07-01 16:58] LABS: Partial Thromboplastin Time 80.3 SECONDS (23.9-36.7)
[2024-07-01] MEDS: morphine 4 mg/mL SDV 1 mL 2 MG IVP (19:37)
[2024-07-01] MEDS: lanolin oint 7 gm 1 APPLIC TOPICAL (19:48)
[2024-07-02] VITALS (34 sets, daily range): BP systolic 91–148; BP diastolic 62–91; PULSE 77–96; RESP 13–23; TEMP 36.1–36.4; O2SAT 85–98; BMI 24.3
[2024-07-02] MEDS: lanolin oint 7 gm 1 APPLIC TOPICAL (02:05)
[2024-07-02] MEDS: morphine 4 mg/mL SDV 1 mL 2 MG IVP ×3 (02:05→23:27)
[2024-07-02] MEDS: ipratropium 0.5 mg/2.5 mL Neb INHALATION ×2 (02:47→07:38)
[2024-07-02] MEDS: levalbuterol 0.63 mg/3 mL Neb INHALATION ×3 (02:47→13:05)
[2024-07-02 05:12] LABS: Hematocrit 31.8 % (37-53); Mean Corpuscular HGB Conc 30.5 g/dL (30-55); Mean Corpuscular Hemoglobin 31.5 pg (27-33); Mean Corpuscular Volume 103.2 fl (82-101); Mean Platelet Volume 11.9 fL (7.4-10.4); Platelet Count 44 10^3/cmm (157-399); Red Blood Count 3.08 10^6/uL (3.85-5.65); Red Cell Distribution Width 24.3 % (12.1-15.1); White Blood Count 10.19 10^3/uL (3.29-11.43)
[2024-07-02 05:41] LABS: Alanine Aminotransferase 30 U/L (0-41); Alkaline Phosphatase 130 U/L (40-130); Anion Gap 16.9 (5-19); Aspartate Amino Transferase 48 U/L (0-40); Blood Urea Nitrogen 73 mg/dL (8-23); Calcium 7.3 mg/dL (8.5-10.5); Carbon Dioxide 32 mmol/L (22-29); Chloride 97 mmol/L (98-107); Creatinine Clr Calc Pharmacy 27.2994; Globulin 3.4 g/dL (1.3-4.6); Glucose 87 mg/dL (65-115); Osmolality Calculated 317 mOsm/kg (285-295); Sodium 143 mmol/L (136-145); Total Bilirubin 4.3 mg/dL (0.15-1.2); Total Protein 6.4 g/dL (6.6-8.7)
[2024-07-02] MEDS: methylPREDNISolone sod succ 40 mg/mL INJ IVP (05:42)
[2024-07-02] MEDS: pantoprazole 40 mg SDV IVP (05:42)
[2024-07-02 05:45] LABS: Partial Thromboplastin Time 49.5 SECONDS (23.9-36.7)
[2024-07-02 05:49] LABS: Potassium 2.9 mmol/L (3.5-5.1)
[2024-07-02] MEDS: heparin 5,000 unit/mL INJ 1 mL IVP (06:05)
[2024-07-02] MEDS: potassium chloride premix 100 ML 25 MEQ IV ×2 (06:05→09:29)
[2024-07-02] MEDS: budesonide 0.5 mg/2 mL Neb INHALATION (07:38)
[2024-07-02] MEDS: cefepime 1,000 MG in sodium chloride 0.9% (plus) 50 ML 100 MG IV (09:27)
[2024-07-02] MEDS: fludrocortisone 0.1 mg Tablet PO (09:27)
[2024-07-02] MEDS: metOLazone 5 MG Tablet PO (09:27)
[2024-07-02] MEDS: FUROsemide 10 mg/mL SDV 10mL 60 MG IVP (10:37)
--- NOTE | 2024-07-02 10:46 | PC.NURSE ---
lasix delayed until until prior krider infused
--- NOTE | 2024-07-02 14:00 | P.PN_ITS ---
Subjective 2 Subjective: Hospital course, labs appreciated. Patient seen with caregiver at bedside. Patient is awake, alert and able to have conversation. Denies any nausea, vomiting. Complaining of discomfort and pain. Currently on room air. Mean artery pressure maintained over 65. Dobutamine drip, Lasix drip, Levophed drip discontinued over last 2 days. Good urine output today. Potassium being replaced. Medications: Reviewed: Yes Vitals/I&O/Wt Last Vital Signs Temp 97.3 F L 07/02/24 08:00 Pulse 90 07/02/24 13:08 Resp 16 07/02/24 13:08 BP 120/78 07/02/24 12:00 Pulse Ox 90 07/02/24 13:08 O2 Del Method Room Air 07/02/24 13:08 O2 Flow Rate 2 07/02/24 04:00 FiO2 40 06/30/24 00:15 07/01/24 07/02/24 07/02/24 22:59 06:59 14:59 Intake Total 197.767 / 675.028 181.0 / 856.028 285 / 285 Output Total 1400 / 2850 3900 / 6750 Balance -1202.233 / -2174.972 -3719.0 / -5893.972 285 / 285 Weight last 48 hrs Weight 79.333 kg Weight 79.333 kg Weight 85.021 kg Weight 85.5 kg Physical Exam 2 Narrative: General: No acute distress today, more somnolent, on waking up AO x 2 to 3, on high flow nasal cannula, sick appearing HEENT: PERRLA, pupils bilaterally equal and reactive Chest: Bilateral bronchial breath sounds all over lung barrera with decreased air entry in lower zone, fine crackles up to mid lungs CVS: S1-S2 regular, tachycardia present, soft pansystolic murmur at apex, S3 gallops, no rubs Abdomen: Soft, nontender, no organomegaly, bowel sounds present Neuro: No focal deficits, no facial deformity, AO x3, power 5/5 in all limbs Urinary Catheter Management: Griggs: Cath Placed During This Visit: yes Reason for Continuing Indwelling Catheter: Accurate Measurement of Urinary Output in Critically Ill Patients Urinary Catheter Date of Insertion: 06/28/24 Urinary Catheter Time of Insertion: 19:00 Data 07/02/24 05:01 11/02/24 05:01 Micro: Microbiology 06/28/24 19:50 Gram Stain - Final Sputum - Expectorated Sputum Sputum Culture - Final Klebsiella pneumoniae A&P Assessment and plan (1) Hypoxic respiratory failure: (2) MINGO (acute kidney injury): (3) Congestive heart failure: (4) Cardiogenic shock: (5) Elevated troponin: (6) Anemia: (7) Hyponatremia: (8) Thrombocytopenia: (9) Transaminitis: (10) Pulmonary embolism: (11) Liver cirrhosis: (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 Hypoxic respiratory failure: High likelihood of pulmonary embolism versus congestive heart failure. Appreciate troponin cycled. Troponin on admission 700 trending down to 650. D-dimer elevated to more than 9. ABG showed hypercapnia and hypoxia with concerns for pulmonary embolism. Unfortunately CTA cannot be done as patient has acute kidney injury with creatinine of 2.1. Discussed detail with need for anticoagulation which could be tricky because of ongoing anemia of unknown cause which could be because of bleeding versus anemia of chronic disease. Patient though denies any active bleeding currently. He is agreeable to hold off on contrast study for kidney protection and start on anticoagulation while monitoring his hemoglobin. Continue with heparin drip with concerns for pulmonary embolism being very high. Oxygen supplementation keeping saturation over 90%. Will start on nasal cannula for decreasing work of breathing. If needed we will switch over to high flow nasal cannula. Ipratropium, Xopenex every 6 hour, Pulmicort twice daily. Appreciate CT chest results. Does have concerns for emphysema. Wean Solu-Medrol to 40 mg every 12 hourly. Echocardiogram done shows an EF of 20 to 25%, severely reduced LV dysfunction, global LV hypokinesia of with severe hypokinesia of anteroseptal, anterolateral and apical wall, mildly increased RV size with fair LV systolic function severe MR, trace AI, moderate TR with RVSP of around 45 to 50 mmHg. Patient has had minimal urine output overnight. Will start on Lasix drip. Add metolazone 5 mg oral daily. Griggs catheterization. Strict input output charting, daily weights. Fluid restriction up to 1500 cc. Goals of care discussion: Discussed needed with the patient and caregiver at bedside. We discussed that unfortunately patient is significantly sick with symptoms concerning for congestive heart failure versus pulmonary embolism with concerns for multiorgan dysfunction. Discussed that there is a high chance patient would not survive anything if he does he would need to be on medications for life and most likely if this is going to be a prolonged hospitalization. Patient verbalized understanding and wants to go ahead with treatment. CODE STATUS: Discussed in detail with patient at bedside. Friend Moon Saleem will be the DPOA. Patient does not want any kind of aggressive measures in case of cardiac arrest. DNR/DNI Protonix twice daily for suppression of PUD prophylaxis Heparin drip will be sufficient for DVT prophylaxis. Severely guarded prognosis in setting of multiorgan dysfunction with MINGO, significantly elevated troponin with concerns for respiratory failure in setting of congestive heart failure versus pulmonary embolism requiring anticoagulation in a patient with setting of severe anemia requiring blood transfusion. PLAN FOR TODAY: 07/02: Over last 2 days Levophed drip, dobutamine drip and Lasix drip has been discontinued. Patient mean atrial pressure mean has been maintained. LFTs and renal functions have remained stable. Urine output has been appropriate. Patient is around 5.5 L negative since admission overall. Patient is sick appearing, awake and alert, mild retractions and difficulty breathing otherwise saturating well over 90% on room air. Patient remains on heparin drip. Sputum culture growing gram-negative rods. Patient has been continued on Solu-Medrol and Florinef was added. Goals of care discussion: Had further goals of care discussion with patient and patient's caregiver/partner at bedside. We discussed her new EF with severe LV dysfunction, congestive heart failure, cardiogenic shock, multiorgan dysfunction with transaminitis, MINGO. We discussed about quality of life versus quantity of life. Discussed going forward the options are 1. To continue with current treatment, have physical therapy team involved and increase physical activity gradually while hopefully maintaining hemodynamics and monitoring kidney and liver numbers. We discussed unfortunately chances of significant improvement in cardiac functions are very low. Discussed patient is not a candidate for any surgical interventions. 2. Discussed options of hospice care in which the care will be concentrated on keeping him comfortable, pain-free, without poking improving him to monitor his blood work and possible discharge back home with hospice once available. Also discussed hospice would mean that if and when he gets sick concentrations would be to keep him comfortable rather rushing him to hospital and let nature takes its own course which could eventually mean his . Patient after thinking further and discussing with his partner decided about concentrating more about his comfort and would like to go ahead and set up hospice. No further blood work. Vitals as per protocol. Will start on medications including morphine, Ativan as needed for air hunger and pain. Stop IV antibiotics Hold off on diuretics. Will alert case management about hospice care and set up once available. Start on pleasure feeds. Hold off on Precedex. Stop heparin drip. Hold off on PTT. Attestations 2 Medical Necessity Statement*: Requires further hospitalization while hospice is being set up for a patient who was admitted for cardiogenic shock, cardiomyopathy with new EF of 25%, multiorgan dysfunction with MINGO, transaminitis, respiratory failure Diagnoses Hypoxic respiratory failure J96.91 MINGO (acute kidney injury) N17.9 Congestive heart failure I50.9 Cardiogenic shock R57.0 Elevated troponin R79.89 Anemia D64.9 Hyponatremia E87.1 Thrombocytopenia D69.6 Transaminitis R74.01 Pulmonary embolism I26.99 Liver cirrhosis K74.60 Multi-organ failure with heart failure I50.9
[2024-07-02] MEDS: LORazepam 2 mg/mL INJ 1 mL IVP (19:33)
[2024-07-02] MEDS: glycopyrrolate 0.2 mg/mL SDV 2 mL IV (23:27)
[2024-07-03] VITALS: BP 107/71; PULSE 107; RESP 13; O2SAT 89
--- NOTE | 2024-07-03 01:32 | PC.NURSE ---
Addendum entered by Charu Almeida RN 07/03/24 01:36 CDT: Moon (Friend, DPOA): called @0583 to notify of room/floor change. All questions answered at this time. Original Note: Transfer to [facility]: Report called to [facility] on [facility]. Pt transported @0118.
--- NOTE | 2024-07-03 01:45 | PC.NURSE ---
Patient received 1mg of ativan prior to coming to the floor. ICU nurse stated patient was alert and oriented x4 before receiving the dose, but has been drowsy and not verbally responsive. Upon my assessment, patient is still currently drowsy and not saying words, but able to shake his head yes and no.
[2024-07-03] MEDS: glycopyrrolate 0.2 mg/mL SDV 2 mL IV (04:55)
[2024-07-03 14:05] VITALS: RESP 14
[2024-07-03] MEDS: morphine 4 mg/mL SDV 1 mL 2 MG IVP ×2 (14:05→18:12)
--- NOTE | 2024-07-03 14:46 | P.PN_ITS ---
Subjective 2 Subjective: No acute events overnight. Seen with caregiver at bedside. Patient is comfortable. Awake and able to have some conversation. Vitals/I&O/Wt Last Vital Signs Temp 97.0 F L 07/02/24 20:00 Pulse 107 H 07/03/24 00:00 Resp 14 07/03/24 14:05 BP 107/71 07/03/24 00:00 Pulse Ox 89 L 07/03/24 00:00 O2 Del Method Room Air 07/03/24 00:00 O2 Flow Rate 2 07/02/24 04:00 FiO2 40 06/30/24 00:15 07/02/24 07/03/24 07/03/24 23:59 06:59 14:59 Intake Total 0 / 0 Output Total Balance 0 / 0 Weight last 48 hrs Weight 79.333 kg Weight 79.333 kg Physical Exam 2 Narrative: Appears comfortable. Able to have conversation. Urinary Catheter Management: Griggs: Cath Placed During This Visit: yes Reason for Continuing Indwelling Catheter: Hospice/Comfort/Palliative Care Urinary Catheter Date of Insertion: 06/28/24 Urinary Catheter Time of Insertion: 19:00 Data 07/02/24 05:01 07/02/24 05:01 A&P Assessment and plan (1) Hypoxic respiratory failure: (2) MINGO (acute kidney injury): (3) Congestive heart failure: (4) Cardiogenic shock: (5) Elevated troponin: (6) Anemia: (7) Hyponatremia: (8) Thrombocytopenia: (9) Transaminitis: (10) Pulmonary embolism: (11) Liver cirrhosis: (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 Hypoxic respiratory failure: High likelihood of pulmonary embolism versus congestive heart failure. Appreciate troponin cycled. Troponin on admission 700 trending down to 650. D-dimer elevated to more than 9. ABG showed hypercapnia and hypoxia with concerns for pulmonary embolism. Unfortunately CTA cannot be done as patient has acute kidney injury with creatinine of 2.1. Discussed detail with need for anticoagulation which could be tricky because of ongoing anemia of unknown cause which could be because of bleeding versus anemia of chronic disease. Patient though denies any active bleeding currently. He is agreeable to hold off on contrast study for kidney protection and start on anticoagulation while monitoring his hemoglobin. Continue with heparin drip with concerns for pulmonary embolism being very high. Oxygen supplementation keeping saturation over 90%. Will start on nasal cannula for decreasing work of breathing. If needed we will switch over to high flow nasal cannula. Ipratropium, Xopenex every 6 hour, Pulmicort twice daily. Appreciate CT chest results. Does have concerns for emphysema. Wean Solu-Medrol to 40 mg every 12 hourly. Echocardiogram done shows an EF of 20 to 25%, severely reduced LV dysfunction, global LV hypokinesia of with severe hypokinesia of anteroseptal, anterolateral and apical wall, mildly increased RV size with fair LV systolic function severe MR, trace AI, moderate TR with RVSP of around 45 to 50 mmHg. Patient has had minimal urine output overnight. Will start on Lasix drip. Add metolazone 5 mg oral daily. Griggs catheterization. Strict input output charting, daily weights. Fluid restriction up to 1500 cc. Goals of care discussion: Discussed needed with the patient and caregiver at bedside. We discussed that unfortunately patient is significantly sick with symptoms concerning for congestive heart failure versus pulmonary embolism with concerns for multiorgan dysfunction. Discussed that there is a high chance patient would not survive anything if he does he would need to be on medications for life and most likely if this is going to be a prolonged hospitalization. Patient verbalized understanding and wants to go ahead with treatment. CODE STATUS: Discussed in detail with patient at bedside. Friend Moon Saleem will be the DPOA. Patient does not want any kind of aggressive measures in case of cardiac arrest. DNR/DNI Protonix twice daily for suppression of PUD prophylaxis Heparin drip will be sufficient for DVT prophylaxis. Severely guarded prognosis in setting of multiorgan dysfunction with MINGO, significantly elevated troponin with concerns for respiratory failure in setting of congestive heart failure versus pulmonary embolism requiring anticoagulation in a patient with setting of severe anemia requiring blood transfusion. PLAN FOR TODAY: 07/02: Over last 2 days Levophed drip, dobutamine drip and Lasix drip has been discontinued. Patient mean atrial pressure mean has been maintained. LFTs and renal functions have remained stable. Urine output has been appropriate. Patient is around 5.5 L negative since admission overall. Patient is sick appearing, awake and alert, mild retractions and difficulty breathing otherwise saturating well over 90% on room air. Patient remains on heparin drip. Sputum culture growing gram-negative rods. Patient has been continued on Solu-Medrol and Florinef was added. Goals of care discussion: Had further goals of care discussion with patient and patient's caregiver/partner at bedside. We discussed her new EF with severe LV dysfunction, congestive heart failure, cardiogenic shock, multiorgan dysfunction with transaminitis, MINGO. We discussed about quality of life versus quantity of life. Discussed going forward the options are 1. To continue with current treatment, have physical therapy team involved and increase physical activity gradually while hopefully maintaining hemodynamics and monitoring kidney and liver numbers. We discussed unfortunately chances of significant improvement in cardiac functions are very low. Discussed patient is not a candidate for any surgical interventions. 2. Discussed options of hospice care in which the care will be concentrated on keeping him comfortable, pain-free, without poking improving him to monitor his blood work and possible discharge back home with hospice once available. Also discussed hospice would mean that if and when he gets sick concentrations would be to keep him comfortable rather rushing him to hospital and let nature takes its own course which could eventually mean his . Patient after thinking further and discussing with his partner decided about concentrating more about his comfort and would like to go ahead and set up hospice. No further blood work. Vitals as per protocol. Will start on medications including morphine, Ativan as needed for air hunger and pain. Stop IV antibiotics Hold off on diuretics. Will alert case management about hospice care and set up once available. Start on pleasure feeds. Hold off on Precedex. Stop heparin drip. Hold off on PTT. Plan for the day: Continue with comfort care measures. Plan consult case management once available for hospice set up. Attestations 2 Medical Necessity Statement*: Requires further hospitalization while hospice is set up in a patient originally admitted for cardiogenic shock, cardiomyopathy with a EF of 25% along with multiorgan dysfunction. Diagnoses Hypoxic respiratory failure J96.91 MINGO (acute kidney injury) N17.9 Congestive heart failure I50.9 Cardiogenic shock R57.0 Elevated troponin R79.89 Anemia D64.9 Hyponatremia E87.1 Thrombocytopenia D69.6 Transaminitis R74.01 Pulmonary embolism I26.99 Liver cirrhosis K74.60 Multi-organ failure with heart failure I50.9
[2024-07-03 18:12] VITALS: RESP 12
[2024-07-03] MEDS: morphine 4 mg/mL SDV 1 mL IVP (19:44)
[2024-07-03] MEDS: LORazepam 2 mg/mL INJ 1 mL IVP (19:45)
[2024-07-04] MEDS: glycopyrrolate 0.2 mg/mL SDV 2 mL IV (02:39)
[2024-07-04] MEDS: morphine 4 mg/mL SDV 1 mL IVP ×3 (02:41→12:13)
--- NOTE | 2024-07-04 09:59 | PC.SOCIAL ---
IMM Update Pg. 2 of IMM updated and copy provided at bedside.
--- NOTE | 2024-07-04 12:53 | P.PN_ITS ---
Subjective 2 Subjective: Not responsive. Vitals/I&O/Wt Last Vital Signs Temp 97.0 F L 07/02/24 20:00 Pulse 107 H 07/03/24 00:00 Resp 12 07/03/24 18:12 BP 107/71 07/03/24 00:00 Pulse Ox 89 L 07/03/24 00:00 O2 Del Method Room Air 07/03/24 00:00 O2 Flow Rate 2 07/02/24 04:00 FiO2 40 06/30/24 00:15 07/03/24 07/04/24 07/04/24 22:59 06:59 14:59 Output Total 1800 / 1800 300 / 300 Balance -1800 / -1800 -300 / -300 Weight last 48 hrs Weight 79.061 kg Physical Exam 2 Const: GENERAL APPEARANCE: not cooperative ORIENTATION/CONSCIOUSNESS: not awake Neck/C-Spine: COMMON NORMALS: no JVD Resp: COMMON NORMALS: normal respiratory effort and clear to auscultation bilaterally AUSCULTATION: clear to auscultation bilaterally Cardio: COMMON NORMALS: no JVD, regular rhythm, S1 normal heart sound present, S2 normal heart sound present and No murmurs present (Cardio) RHYTHM: regular rhythm HEART SOUNDS: S1 normal heart sound present and S2 normal heart sound present GI: COMMON NORMALS: Normal to inspection, nondistended, normoactive bowel sounds present, Soft to palpation and non-tender PALPATION: Yes Soft to palpation Extremity: COMMON NORMALS: no joint enlargement Neuro: COMMON NORMALS: moves all extremities Skin: COMMON NORMALS: no rashes or lesions noted GENERAL SKIN EXAM: no rashes or lesions noted Urinary Catheter Management: Girggs: Cath Placed During This Visit: yes Reason for Continuing Indwelling Catheter: Hospice/Comfort/Palliative Care Urinary Catheter Date of Insertion: 06/28/24 Urinary Catheter Time of Insertion: 19:00 Data 07/02/24 05:01 07/02/24 05:01 Micro: Microbiology 06/28/24 15:45 Blood Culture - Final Blood NO GROWTH AFTER 5 DAYS 06/28/24 15:26 Blood Culture - Final Blood NO GROWTH AFTER 5 DAYS A&P Assessment and plan (1) Hypoxic respiratory failure: (2) MINGO (acute kidney injury): (3) Congestive heart failure: (4) Cardiogenic shock: (5) Elevated troponin: (6) Anemia: (7) Hyponatremia: (8) Thrombocytopenia: (9) Transaminitis: (10) Pulmonary embolism: (11) Liver cirrhosis: (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 Hospice care: He is not responsive. Repositioning in bed. Does not appear in distress. Continue hospice care, including comfort medications, including IV Ativan as needed for anxiety. Renew IV morphine. Discussed with nursing, discussed with case folder. Consideration of return home to continue end-of-life care. Hypoxic respiratory failure: High likelihood of pulmonary embolism versus congestive heart failure. Appreciate troponin cycled. Troponin on admission 700 trending down to 650. D-dimer elevated to more than 9. ABG showed hypercapnia and hypoxia with concerns for pulmonary embolism. Creatinine of 2.1. Echocardiogram done shows an EF of 20 to 25%, severely reduced LV dysfunction, global LV hypokinesia of with severe hypokinesia of anteroseptal, anterolateral and apical wall, mildly increased RV size with fair LV systolic function severe MR, trace AI, moderate TR with RVSP of around 45 to 50 mmHg. Pleasure feeds. Attestations 2 Medical Necessity Statement*: Continue end-of-life care, arrangements for possible continuation at home. , Moderate MDM includes amount and/or complexity of data reviewed/ordered [ other healthcare professional discussion] as documented and High MDM includes described risk of complication, morbidity or mortality of management as documented Diagnoses Hypoxic respiratory failure J96.91 MINGO (acute kidney injury) N17.9 Congestive heart failure I50.9 Cardiogenic shock R57.0 Elevated troponin R79.89 Anemia D64.9 Hyponatremia E87.1 Thrombocytopenia D69.6 Transaminitis R74.01 Pulmonary embolism I26.99 Liver cirrhosis K74.60 Multi-organ failure with heart failure I50.9
[2024-07-04] MEDS: LORazepam 2 mg/mL INJ 1 mL IVP (17:00)
[2024-07-05] MEDS: LORazepam 2 mg/mL INJ 1 mL IVP ×3 (00:51→21:58)
[2024-07-05 13:44] VITALS: RESP 16
[2024-07-05] MEDS: morphine 4 mg/mL SDV 1 mL 2 MG IVP (13:44)
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
[2024-07-06] VITALS: BP 110/77; PULSE 67; RESP 10; O2SAT 76
[2024-07-06] MEDS: glycopyrrolate 0.2 mg/mL SDV 2 mL IV (02:24)
[2024-07-06] MEDS: morphine 10 mg/0.5 mL oral liq UD SUBLINGUAL (02:24)
[2024-07-06 05:53] VITALS: RESP 12
[2024-07-06] MEDS: morphine 4 mg/mL SDV 1 mL IVP ×3 (05:53→19:36)
[2024-07-06] MEDS: LORazepam 2 mg/mL INJ 1 mL IVP ×2 (05:53→20:23)
[2024-07-06 06:00] VITALS: BMI 21.7
--- NOTE | 2024-07-06 08:48 | PC.SOCIAL ---
IMM Updated Provided pt a copy. Initialed, dated, & timed copy in chart.
--- NOTE | 2024-07-06 11:07 | PM.DCS ---
Discharge Providers Date of Admission: 06/28/24 17:55 Date of Discharge: July 06, 2024 Attending Provider at Admission: Ab Levi MD Attending Provider at Discharge: Fred Baker Primary Care Provider: Marlon Burris DO Diagnoses at Discharge Discharge Diagnosis (1) Hypoxic respiratory failure: Status: Acute (2) MINGO (acute kidney injury): Status: Acute (3) Congestive heart failure: Status: Acute (4) Cardiogenic shock: Status: Acute (5) Elevated troponin: Status: Acute (6) Anemia: Status: Acute (7) Hyponatremia: Status: Acute (8) Thrombocytopenia: Status: Acute (9) Transaminitis: Status: Acute (10) Pulmonary embolism: Status: Suspected (11) Liver cirrhosis: Status: Acute (12) Multi-organ failure with heart failure: Status: Acute Reason for Visit Reason for Visit: sob Hospital Course Hospital Course 69-year-old gentleman came in due to shortness of breath, admitted with high suspicion of pulmonary embolism, started on anticoagulation, additionally with acute kidney injury, elevated troponin, anemia, transaminitis, echocardiogram obtained, with finding of new severe cardiomyopathy, EF down to 20-25%, severe global hypokinesis, with cardiogenic shock with development of severe hypotension, multiorgan injury requiring pressor, dobutamine, Lasix drip, despite treatments with lack of improvement with multiorgan dysfunction, respiratory failure, MINGO, liver injury. With lack of improvement on further discussions of goals of care decision made to pursue hospice/end-of-life comfort measures which were started in the hospital and preparations are made to continue at home. Physical Exam Narrative: Does not appear in distress. Const: GENERAL APPEARANCE: not cooperative ORIENTATION/CONSCIOUSNESS: not awake Neck/C-Spine: COMMON NORMALS: no JVD Resp: COMMON NORMALS: normal respiratory effort and clear to auscultation bilaterally AUSCULTATION: clear to auscultation bilaterally Cardio: COMMON NORMALS: no JVD, regular rhythm, S1 normal heart sound present, S2 normal heart sound present and No murmurs present (Cardio) RHYTHM: regular rhythm HEART SOUNDS: S1 normal heart sound present and S2 normal heart sound present GI: COMMON NORMALS: Normal to inspection, nondistended, normoactive bowel sounds present, Soft to palpation and non-tender PALPATION: Yes Soft to palpation Extremity: COMMON NORMALS: no joint enlargement Neuro: COMMON NORMALS: moves all extremities Skin: COMMON NORMALS: no rashes or lesions noted GENERAL SKIN EXAM: no rashes or lesions noted Urinary Catheter Management: Griggs: Cath Placed During This Visit: yes Reason for Continuing Indwelling Catheter: Hospice/Comfort/Palliative Care Urinary Catheter Date of Insertion: 06/28/24 Urinary Catheter Time of Insertion: 19:00 Discharge Data Studies Completed and Pending Completed Studies During Hospitalization Category Date Time Status CT chest abdomen pelvis [[place] [id number] Cat Scan 06/28/24 17:45 Completed ] Stat CT head wo con* [id number] Stat Cat Scan 06/28/24 16:13 Completed XR chest 1V portable [id number] Routine Exams 06/28/24 18:08 Completed XR chest 1V portable [id number] Routine Exams 07/01/24 01:26 Completed XR chest 1V portable [id number] Stat Exams 06/28/24 15:09 Completed US echo complete [CV. echo complete* 11045] Stat Ultrasound 06/28/24 16:13 Completed Pending at discharge Category Date Time Status Fibrinogen Degradation Product Routine Lab 06/28/24 20:19 Received Radiology Impressions Head CT 06/28/24 16:13 IMPRESSION: No acute intracranial abnormality. If symptoms persist, consider further evaluation with MRI, if MRI is clinically safe to obtain. Chest/Abdomen/Pelvis CT 06/28/24 17:45 IMPRESSION: 1. Small right and moderate left pleural effusions with adjacent atelectasis. 2. Mild area of ground-glass opacification in the anterior left upper lobe is nonspecific and may represent focal consolidation. 3. Scattered subpleural nodules measuring up to 8 mm likely inflammatory/postinflammatory. See comments for Fleischner recommendations. 4. Mild diffuse subcutaneous edema. 5. Other nonemergent findings above. IMPRESSION: 1. Nodular liver surface may indicate chronic liver disease such as cirrhosis. 2. [id number] ascites , central mesenteric edema, and anasarca. Correlate with fluid status. 3. Hyperdensities within the gallbladder which is not well assessed due to motion artifact. Consider right upper quadrant ultrasound if gallbladder pathology is suspected. 4. Other findings above. Chest X-Ray 07/01/24 01:26 IMPRESSION: 1. Small left pleural effusion with new left upper lobe consolidation, concerning for pneumonia. 2. Ground-glass opacities bilaterally, may reflect infection or edema. Laboratory Results WBC 10.19 10^3/uL (3.29-11.43) 07/02/24 05:01 RBC 3.08 10^6/uL (3.85-5.65) L 07/02/24 05:01 Hgb 9.70 g/dL (11.27-16.99) L 07/02/24 05:01 Hct 31.8 % (37-53) L 07/02/24 05:01 MCV 103.2 fl (82-101) H 07/02/24 05:01 MCH 31.5 pg (27-33) 07/02/24 05:01 MCHC 30.5 g/dL (30-55) 07/02/24 05:01 RDW 24.3 % (12.1-15.1) H 07/02/24 05:01 Plt Count 44 10^3/cmm (157-399) L 07/02/24 05:01 MPV 11.9 fL (7.4-10.4) H 07/02/24 05:01 Neut % (Auto) 95.1 % 07/01/24 05:00 Lymph % (Auto) 1.2 % 07/01/24 05:00 [place] % (Auto) 2.3 % 07/01/24 05:00 Eos % (Auto) 0.0 % 07/01/24 05:00 Baso % (Auto) 0.1 % 07/01/24 05:00 Neut # (Auto) 9.60 10^3/uL (1.8-7.7) H 07/01/24 05:00 Lymph # (Auto) 0.1 10^3/uL (0.8-4.8) L 07/01/24 05:00 [place] # (Auto) 0.2 10^3/uL (0.2-0.9) 07/01/24 05:00 Eos # (Auto) 0.0 10^3/uL (0.0-0.8) 07/01/24 05:00 Baso # (Auto) 0.0 10^3/uL (0.0-0.1) 07/01/24 05:00 Nucleated RBC % (auto) 0.4 % 07/01/24 05:00 Nucleated RBCs # 0.0 /100WBC 07/01/24 05:00 PT 25.50 SECONDS (12.1-14.9) H 06/28/24 20:05 INR 2.23 (0.8-1.2) H 06/28/24 20:05 APTT 49.5 SECONDS (23.9-36.7) H 07/02/24 05:01 Fibrinogen 166 mg/dL (174-498) L 06/28/24 20:05 D-Dimer 8.52 ug/mLFEU (0-0.59) H 06/28/24 20:05 Specimen Type Arterial 06/28/24 15:09 Sample Site Radial, right 06/28/24 15:09 ABG pH 7.45 (7.35-7.45) 06/28/24 15:09 ABG pCO2 34.2 mmHg (35-45) L 06/28/24 15:09 ABG pO2 70.2 mmHg (80.0-100.0) L 06/28/24 15:09 ABG PO2/FiO2 Ratio 334 06/28/24 15:09 ABG HCO3 23.7 mmol/L (22-26) 06/28/24 15:09 ABG O2 Saturation 95.6 06/28/24 15:09 ABG Base Excess -0.2 mmol/L (-2.0-2.0) 06/28/24 15:09 Toney Test Pos 06/28/24 15:09 A-a O2 Gradient 4.7 mmHg (5-10) L 06/28/24 15:09 Hematocrit 20.8 % (42-52) L 06/28/24 15:09 Hgb O2 Saturation 91.1 % (95-100) L 06/28/24 15:09 Carboxyhemoglobin 3.2 %THgb (0.4-20.1) 06/28/24 15:09 Methemoglobin 1.5 % (0.4-1.5) 06/28/24 15:09 Total Hemoglobin 6.8 g/dL (14-18) L 06/28/24 15:09 Sodium 135.0 mmol/L (131-143) 06/28/24 15:09 Potassium 4.5 mmol/L (3.5-5.0) 06/28/24 15:09 Glucose 122.0 mg/dL (70-115) H 06/28/24 15:09 Ionized Calcium 1.1 mmol/L (1.1-1.4) 06/28/24 15:09 O2 Delivery Device Room air 06/28/24 15:09 FiO2 21.0 % 06/28/24 15:09 Laboratory Veterinarian ID Hector 06/28/24 15:09 Sodium 143 mmol/L (136-145) 07/02/24 05:01 Potassium 2.9 mmol/L (3.5-5.1) L 07/02/24 05:01 Chloride 97 mmol/L (98-107) L 07/02/24 05:01 Carbon Dioxide 32 mmol/L (22-29) H 07/02/24 05:01 Anion Gap 16.9 (5-19) 07/02/24 05:01 BUN 73 mg/dL (8-23) H 07/02/24 05:01 Creatinine 2.7 mg/dL (0.7-1.2) H 07/02/24 05:01 GFR Calculation Not Reportable 07/02/24 05:01 Glucose 87 mg/dL (65-115) 07/02/24 05:01 POC Glucose 143 mg/dL (70-110) H 06/29/24 20:46 Estimat Average Glucose 85 06/29/24 08:48 Hemoglobin A1c 4.6 % (4.0-6.0) 06/29/24 08:48 Calculated Osmolality 317 mOsm/kg (285-295) H 07/02/24 05:01 Lactic Acid 1.7 mmol/L (0.5-2.2) 06/29/24 00:40 Lactic Acid (Sepsis) 2.1 mmol/L (0.5-2.2) 06/28/24 18:15 Calcium 7.3 mg/dL (8.5-10.5) L 07/02/24 05:01 Phosphorus 5.3 mg/dL (2.5-4.5) H 06/29/24 08:48 Magnesium 2.7 mg/dL (1.7-2.3) H 06/29/24 08:48 Iron 110 ug/dL (59-158) 06/29/24 00:54 TIBC 224 mcg/dl 06/29/24 00:54 % Saturation 49.1 % (20-50) 06/29/24 00:54 Unsat Iron Binding 114 ug/dL (112-347) 06/29/24 00:54 Total Bilirubin 4.3 mg/dL (0.15-1.2) H 07/02/24 05:01 AST 48 U/L (0-40) H 07/02/24 05:01 ALT 30 U/L (0-41) 07/02/24 05:01 Alkaline Phosphatase 130 U/L (40-130) 07/02/24 05:01 Ammonia 19 umol/L (16-60) 06/29/24 12:40 Creatine Kinase 110 U/L (39-308) 06/28/24 15:26 Troponin T Baseline 763 ng/L (0-15) H* 06/28/24 15:26 Troponin T 120 Minute 703.2 ng/L (0-15) H 06/28/24 18:15 Delta Troponin T -59.8 ABS# (0-10) L 06/28/24 18:15 Troponin T Hi Sens 6Hr 635.7 ng/L (0-15) H 06/29/24 00:40 Troponin T Hi Sens 6Hr Delta -127.3 ng/L (0-12) L 06/29/24 00:40 C-Reactive Protein 73.0 mg/L (0.0-4.9) H 07/02/24 05:01 NT-Pro-B Natriuret Pep 78338 pg/mL (0-125) H 06/28/24 15:26 Total Protein 6.4 g/dL (6.6-8.7) L 07/02/24 05:01 Albumin 3.0 g/dL (3.5-5.2) L 07/02/24 05:01 Globulin 3.4 g/dL (1.3-4.6) 07/02/24 05:01 Triglycerides 66 mg/dL (0-150) 06/29/24 08:48 Cholesterol 95 mg/dL (0-200) 06/29/24 08:48 LDL Cholesterol, Calc 59 mg/dL (50-129) 06/29/24 08:48 HDL Cholesterol 23 mg/dL (60-100) L 06/29/24 08:48 LDL/HDL Ratio 2.57 RATIO (0.00-3.22) 06/29/24 08:48 Cholesterol/HDL Ratio 4.13 mg/dL (1.0-5.00) 06/29/24 08:48 Lipase 34 U/L (13-60) 06/28/24 15:26 Vitamin B12 1847 pg/mL (232-1245) H 06/29/24 00:54 Folate 11.2 ng/mL (4.5-32.2) 06/29/24 08:48 Procalcitonin 0.88 ng/mL (0-0.5) H 06/29/24 08:48 TSH 4.04 uIU/mL (0.27-4.20) 06/28/24 18:15 Urine Color [place] (Yellow) A 06/28/24 19:02 Urine Appearance Slightly cloudy (CLEAR) 06/28/24 19:02 Urine pH Not Reportable 06/28/24 19:02 Ur Specific [place] Not Reportable 06/28/24 19:02 Urine Protein Not tested (Negative) 06/28/24 19:02 Urine Glucose (UA) Not tested (Normal) 06/28/24 19:02 Urine Ketones Not tested (Negative) H 06/28/24 19:02 Urine Blood Not tested (Negative) A 06/28/24 19: Urine Nitrate Not tested (Negative) A 06/28/24 19:02 Urine Bilirubin Not tested (Negative) 06/28/24 19:02 Urine Urobilinogen Not tested mg/dL (Negative) A 06/28/24 19:02 Ur Leukocyte Esterase Not tested (Negative) A 06/28/24 19:02 Urine RBC 0-4 /hpf (0-2) H 06/28/24 19:02 Urine WBC 0-4 /hpf (0-5) H 06/28/24 19:02 Ur Eosinophil Smear 0 (0-0) 06/28/24 19:02 Ur Squamous Epith Cells 15-25 /hpf (0-5) H 06/28/24 19:02 Ur Transition Epith Cell 0-4 /hpf 06/28/24 19:02 Amorphous Sediment Trace /hpf 06/28/24 19:02 Urine Bacteria 2+ /hpf (NONE) H 06/28/24 19:02 Hyaline Casts 15-25 /lpf H 06/28/24 19:02 Urine Mucus Trace /hpf 06/28/24 19:02 Urine Eosinophils No eosinophils seen 06/28/24 19:02 Ur Random Sodium < 10 mmol/L 06/28/24 19:02 Ur Random Potassium 76 mmol/L 06/28/24 19:02 Ur Random Chloride < 10 mmol/L 06/28/24 19:02 Urine Creatinine 170 mg/dL (39-259) 06/28/24 19:02 Nasal MRSA (PCR) Not detected (Negative) 06/28/24 21:42 Salicylates 0.4 mg/dL (3-10) L 06/28/24 18:15 Urine Opiates Screen Negative ng/mL (Negative) 06/28/24 19:02 Acetaminophen < 5.0 ug/mL (10-30) L 06/28/24 18:15 Ur Barbiturates Screen Negative ng/mL (Negative) 06/28/24 19:02 Ur Phencyclidine Scrn Negative ng/mL (Negative) 06/28/24 19:02 Ur Amphetamines Screen Negative ng/mL (Negative) 06/28/24 19:02 U Benzodiazepines Scrn Negative ng/mL (Negative) 06/28/24 19:02 Urine Cocaine Screen Negative ng/mL (Negative) 06/28/24 19:02 U Marijuana (THC) Screen Positive ng/mL (Negative) H 06/28/24 19:02 Ethyl Alcohol < 10 mg/dL (0-10) 06/28/24 18:15 Coronavirus (PCR) Negative (Negative) 06/28/24 18:17 Hepatitis A IgM Ab Non-reactive (Nonreactive) 06/28/24 18:15 Hep Bs Antigen Non-reactive (Nonreactive) 06/28/24 18:15 Hep Bs Antibody 16.1 (11.5-1000) 06/28/24 18:15 Hep B Core Total Ab Non-reactive (Nonreactive) 06/28/24 18:15 Hepatitis C Antibody Non-reactive (Nonreactive) 06/28/24 18:15 HIV 1&2 Ab & HIV 1 Ag Non-reactive (Non-Reactiv) 06/28/24 18:15 HIV 1&2 Antibody Non-reactive (Non-Reactiv) 06/28/24 18:15 Influenza A (PCR) Negative (Negative) 06/28/24 18:17 Influenza Type B (PCR) Negative (Negative) 06/28/24 18:17 RSV (PCR) Negative (Negative) 06/28/24 18:17 Blood Type O Negative 06/28/24 16:29 Rho(D) Type Rh negative 06/28/24 16:29 Antibody Screen Negative 06/28/24 16:29 Crossmatch See Detail 06/28/24 16:29 Vitals Last Vital Signs Temp 97.0 F L 07/02/24 20:00 Pulse 67 07/06/24 00:00 Resp 12 07/06/24 05:53 BP 110/77 07/06/24 00:00 Pulse Ox 76 L 07/06/24 00:00 O2 Del Method Room Air 07/06/24 00:00 O2 Flow Rate 2 07/02/24 04:00 FiO2 40 06/30/24 00:15 Discharge Plan Discharge Patient Disposition: Hospice - Home Condition: Stable Prescriptions: No Action No Known Home Medications Discharge Orders: Discharge Order (Routine); Ordered 07/06/24 Ordered By: Fred Baker Referrals: [facility] [Outside] Marlon Burris, DO [Primary Care Provider] - None (As needed) Discharge Diet: As Directed Patient Instructions: Hospice Care (GEN) Activity Restrictions/Additional Instructions: Continue end-of-life/comfort care at home. Pleasure feeds with dysphagia level 4 extremely thick/pur?ed diet with moderately thick liquid as tolerating. Discharge Attestations Time Spent in Discharge Care*: greater than 30 min Quality Metrics Clinical Quality Measures [ No reported AMI, CVA or VTE this stay] Coding Level of Care Code 07382 Total time (in minutes) for Discharge: 40 Diagnoses Hypoxic respiratory failure J96.91 MINGO (acute kidney injury) N17.9 Congestive heart failure I50.9 Cardiogenic shock R57.0 Elevated troponin R79.89 Anemia D64.9 Hyponatremia E87.1 Thrombocytopenia D69.6 Transaminitis R74.01 Pulmonary embolism I26.99 Liver cirrhosis K74.60 Multi-organ failure with heart failure I50.9
[2024-07-06 14:49] VITALS: RESP 12
[2024-07-06 19:36] VITALS: RESP 8
[2024-07-07 00:24] VITALS: BP 111/76; PULSE 57; RESP 12; O2SAT 85
[2024-07-07 04:28] LABS: Fibrinogen Degradation Product 10 mcg/mL (LESS THAN 5)
--- NOTE | 2024-07-07 04:53 | PC.NURSE ---
pt had discharge orders and was awaiting transfer from [facility] at the beginning of the shift. This nurse was contacted by the patients family friend and [facility] in regards to concerns about the patient discharging in the middle of the night when pharmacy is closed, causing the patient to go without comfort meds until the AM. the patient has had increased medication requirements since comfort care was initiated. this nurse spoke with the hospitalist quality control scientist and requested the patients discharge be revoked and replaced in the am so the patient could stay and have comfort medication available to him overnight. was agreeable, charge nurse Fabby reascended the discharge order and contacted [facility] about patient transfer. Per [facility] the patient is to be picked up at 8 AM 07/07/24 and taken home on hospice. This nurse contacted the Family friend as well as [facility] about the updated plan and both were agreeable.
[2024-07-07 06:21] VITALS: BP 111/76; PULSE 57; RESP 8; TEMP 36.1; O2SAT 86
[2024-07-07 07:21] VITALS: BP 114/64; PULSE 63; RESP 18; O2SAT 87
[2024-07-07 08:16] VITALS: RESP 8
[2024-07-07] MEDS: morphine 4 mg/mL SDV 1 mL 2 MG IVP (08:16)
[2024-07-07] MEDS: LORazepam 2 mg/mL INJ 1 mL IVP (08:17)
== END 2024-07-07 08:36 | disposition hospice, home (50) | DRG 280 ==
LOC: ER 16:43 → ICU 17:56 → MEDSURG 07-03 01:22
PROVIDERS: Emergency Medicine; Family Medicine; Internal Medicine; Admitting Provider Student in an Organized Health Care Education/Training Program; Emergency Provider Family Medicine; PCP Family Medicine; Visit Provider Internal Medicine
DX: I50.21 Acute systolic (congestive) heart failure (principal); I26.99 Other pulmonary embolism without acute cor pulmonale; I21.A1 Myocardial infarction type 2; J96.01 Acute respiratory failure with hypoxia; R57.0 Cardiogenic shock; J96.02 Acute respiratory failure with hypercapnia; N17.9 Acute kidney failure, unspecified; E87.1 Hypo-osmolality and hyponatremia; I42.9 Cardiomyopathy, unspecified; D64.9 Anemia, unspecified; D69.6 Thrombocytopenia, unspecified; R74.01 Elevation of levels of liver transaminase levels; K74.60 Unspecified cirrhosis of liver; Z51.5 Encounter for palliative care; Z66 Do not resuscitate; F17.220 Nicotine dependence, chewing tobacco, uncomplicated; J43.9 Emphysema, unspecified; Z11.52 Encounter for screening for COVID-19; I08.1 Rheumatic disorders of both mitral and tricuspid valves; I50.84 End stage heart failure
CPT/HCPCS: 0241U; 36415; 36416; 36430; 36592; 36600; 51702; 70450; 71045; 71250; 74176; 80048; 80051; 80053; 80061; 80306; 80307; 81001; 82140; 82330; 82436; 82550; 82570; 82607; 82746; 82805; 82962; 83036; 83540; 83550; 83605; 83690; 83735; 83880; 84100; 84133; 84145; 84300; 84443; 84484; 85014; 85018; 85025; 85027; 85362; 85378; 85384; 85610; 85730; 85999; 86140; 86403; 86705; 86706; 86709; 86803; 86850; 86900; 86920; 87040; 87070; 87077; 87186; 87205; 87340; 87806; 92507; 92523; 92526; 92610; 93005; 93306; 94640; 94660; 94664; 96365; 96366; 96367; 96375; 96376; 97110; 97163; 97166; 97530; 97535; 99285; J0456; J0692; J1250; J1644; J1940; J2020; J2060; J2270; J2470; J2543; J2919; J3475; J3480; J3490; J7050; J7614; J7626; J7644; P9016; P9040; Q0144